=== PATIENT | female | born 1970 | race African-American/Black ===

== ENCOUNTER 2017-12-19 13:33 | Emergency (ER) | payer OTHER ==
[2017-12-19] MEDS ORDERED: SUCCINYLCHOLINE 20 MG/ML (10 ML) IV ONE (13:34)
[2017-12-19] MEDS ORDERED: ETOMIDATE 20 MG/10 ML VIAL IV ONE (13:34)
[2017-12-19] MEDS ORDERED: ALTEPLASE 100 ML IV ONE (13:56)
--- NOTE | 2017-12-19 13:59 | RAD REPORT ---
EXAM DESCRIPTION: CT - Ct Stroke Brain Wo Cont - 12/19/2017 1:48 pm CLINICAL HISTORY: Code stroke CLINICAL HISTORY: None. TECHNIQUE: Axial 5 millimeter thick images of the head were obtained without IV contrast. All CT scans are performed using dose optimization technique as appropriate and may include automated exposure control or mA/KV adjustment according to patient size. FINDINGS: No intracranial hemorrhage, mass, or cerebral edema. No acute cortical based infarction co nfirmed on this study. There are subtle areas of diminished attenuation in the left parietal lobe. No nhemorrhagic CVA would be possible. No other area identified as a possible source of nonhemorrhagic C VA. Ventricles are normal. No extra-axial fluid collections. Durán matter-white matter differentiatio n is preserved. Visualized portions of the mastoid air cells, paranasal sinuses, and orbits are unremarkable. IMPRESSION: No intracranial hemorrhage. No mass, edema or midline shift. Subtle diminished attenuation in the left parietal lobe could indicate nonhemorrhagic CVA. As clinical findings warrant, followup MR imaging could be performed for more sensitive stroke assess ment.
[2017-12-19 14:03] LABS: Absolute Lymphocytes (CBC) 4.1 K/uL (0.7-4.9); Absolute Monocytes 0.6 K/uL (0.1-1.3); Absolute Neutrophil 4.2 K/uL (1.8-8.0); Basophils % 2.7 % (0-1.3); Eosinophils % 2.2 % (0-4.4); Hematocrit 41.3 % (36.0-45.0); Lymphocytes % 43.6 % (15.3-44.8); MCH 28.1 pg (27.0-35.0); MCV 86.7 fL (80-100); MPV 8.5 fL (7.6-11.3); Monocytes % 6.5 % (3.3-12.3); RBC Red Blood Cell Count 4.76 M/uL (3.86-4.86)
--- NOTE | 2017-12-19 14:03 | RAD REPORT ---
EXAM DESCRIPTION: RAD - Chest Single View - 12/19/2017 1:56 pm CLINICAL HISTORY: Dizziness, headache, possible CVA, code stroke chest film COMPARISON: None. TECHNIQUE: AP portable chest image was obtained 1354 hours . FINDINGS: Lung volumes are low. Increased left base opacification is present. This could be early in filtrate or retrocardiac lung base atelectasis. No failure or volume overload. Trachea is midline. He art and vasculature are normal. No measurable pleural effusion and no pneumothorax. No gross bony abn ormality seen. No acute aortic findings suspected. IMPRESSION: Suspected left lung base infiltrate or atelectasis. This can be further evaluated with t wo view imaging when tolerable by the patient.
[2017-12-19 14:08] LABS: Protime INR 0.98
[2017-12-19] MEDS ORDERED: NA CHLORIDE 0.9% 500 ML ONE (14:13)
[2017-12-19] MEDS ORDERED: ONDANSETRON 4 MG/2 ML VIAL ONE ×2 (14:33→15:16)
[2017-12-19] MEDS ORDERED: METOPROLOL TARTRATE 5 MG/5 ML INJ IV ONE (14:50)
[2017-12-19] MEDS ORDERED: LORazepam 2 MG/ML VIAL ONE (14:51)
[2017-12-19 14:56] LABS: Bicarbonate 28 mEq/L (21-31); Glucose Level 84 mg/dL (65-120); Potassium 3.4 mEq/L (3.6-5.0); Sodium Level 135 mEq/L (135-145)
[2017-12-19 14:57] LABS: BUN Blood Urea Nitrogen 11 mg/dL (6-20)
[2017-12-19] MEDS ORDERED: FOSPHENYTOIN PE 500 MG/10 ML VIAL ONE (14:57)
[2017-12-19] MEDS ORDERED: NA CHLORIDE 0.9% 100 ML IV ONE (14:58)
[2017-12-19] MEDS ORDERED: RSI MEDICATION KIT IV ONE (15:12)
[2017-12-19] MEDS ORDERED: NA CHLORIDE 0.9% 1,000 ML ONE (15:16)
--- NOTE | 2017-12-19 15:19 | RAD REPORT ---
EXAM DESCRIPTION: CT - Head Brain Wo Cont - 12/19/2017 3:08 pm CLINICAL HISTORY: Declining state, altered mental status, seizure COMPARISON: CT study December 19 TECHNIQUE: Axial 5 mm thick images of the head were obtained without IV contrast. All CT scans are performed using dose optimization technique as appropriate and may include automated exposure control or mA/KV adjustment according to patient size. FINDINGS: Since the earlier examination there has been no development of hemorrhage. No new mass eff ect or edema. No cortical edema is seen. Patient continues to have a subtle patchy decrease in attenu ation in the left parietal lobe with questionable extension into the posterior left frontal lobe. Thi s remains a subtle finding but is concerning for nonhemorrhagic CVA in a patient with a right sided s ymptoms. Ventricles remain normal. No midline shift. Mastoid air cells and visualized portions of the paranasal sinuses are clear. No acute bony findings. Images were reviewed and findings discussed with referring clinician approximately 1510 hours. IMPRESSION: No hemorrhage has developed since earlier study. No new mass or mass effect. Patient continues to show a subtle patchy decrease in attenuation in the left cerebral hemisphere. Th is is concerning for nonhemorrhagic CVA in a patient with right-sided stroke symptoms. When the patient is stable enough, MR imaging could be used for more sensitive brain parenchymal asse ssment.
[2017-12-19] MEDS ORDERED: MIDAZOLAM HCL 2 MG/2 ML INJ ONE (15:21)
[2017-12-19] MEDS ORDERED: FENTANYL CITR 100 MCG/2 ML ONE (15:22)
--- NOTE | 2017-12-19 15:42 | ER ---
Nurse's Notes [facility] Name: Stella Vargas Age: 47 yrs Sex: Female : 1970 Arrival Date: 12/19/2017 Time: 13:37 Bed 3 Private MD: Diagnosis: Ischemic Stroke, Seizure Presentation: 12/19 13:37 Presenting complaint: Co worker reports that pt began c/o dizziness, headache, numbness ss on R side of face, and confusion that began 30 min TOW BOAT [employer]TAIN. Transition of care: patient was not received from another setting of care. Onset of symptoms was December 19, 2017. Risk Assessment: Do you want to hurt yourself or someone else? Patient reports no desire to harm self or others. Initial Sepsis Screen: Does the patient meet any 2 criteria? No. Patient's initial sepsis screen is negative. Does the patient have a suspected source of infection? No. Patient's initial sepsis screen is negative. Care prior to arrival: None. 13:37 Method Of Arrival: Wheelchair ss 13:37 Acuity: CAROLEE 2 ss 13:38 An acute neurological deficit is present. The charge nurse has been notified. iw Pre-hospital glucose is not applicable to this patient. Triage Assessment: 13:38 General: Appears in no apparent distress. Behavior is calm, cooperative. iw 13:38 The onset of the patients symptoms was December 19, 2017 at 13:00. iw 13:40 Neuro: Reports headache in right parietal area, numbness in right arm and right jaw and iw right taoism and right cheek and right leg. 13:41 Pain: Complains of pain in right taoism. iw MANAGER VOICE: 13:41 LMP 0 iw Stroke Activation: Physician: Stroke Attending; Name: Dr. Schaffer; Notified At: 13:38; Arrived At: 13:38 Physician: Chief Stroke Resident; Name: ; Notified At: 13:38; Arrived At: Physician: Stroke Resident; Name: ; Notified At: 13:38; Arrived At: Physician: ED Attending; Name: Dr. Schaffer; Notified At: 13:38; Arrived At: 13:38 Physician: ED Resident; Name: ; Notified At: 13:38; Arrived At: Historical: - Allergies: 13:39 Oxycodone; ss - Home Meds: 14:14 Lisinopril Oral [Active]; amlodipine oral [Active]; iw - PMHx: 13:39 Hypertension; ss - PSHx: 14:14 Hysterectomy; ; iw - Immunization history:: Adult Immunizations unknown. - Ebola Screening: : No symptoms or risks identified at this time. - Social history:: Smoking status: Patient/guardian denies using tobacco. Screenin:08 Abuse screen: Denies threats or abuse. Denies injuries from another. Nutritional iw screening: No deficits noted. Tuberculosis screening: No symptoms or risk factors identified. 14:12 Fall Risk IV access (20 points). iw Assessment: 13:38 Reassessment: Code Stroke called, Dr. Schaffer at bedside to assess patient, FS=78, pt iw to CT at 1339, with RN, back to ER bed 5 at 1347, placed on monitor, Xiomara Rn at bedside for IV insertion. 13:38 Patient has been NPO before screening. The patient is alert, and able to follow iw commands. The patient exhibits slurred or garbled speech. The patient is exhibiting difficulty speaking. The patient is exhibiting difficulty understanding words. The patient is able to swallow own secretions with no drooling or need for suction. 13:39 General: Appears in no apparent distress. comfortable, Behavior is calm, cooperative. iw Pain: Complains of pain in right taoism Pain currently is 8 out of 10 on a pain scale. Neuro: Level of Consciousness is awake, alert, obeys commands, Oriented to person, place, time, Weakness in right arm(s) Facial droop on right, Numbness in right cheek, mouth and right jaw. Cardiovascular: Patient's skin is warm and dry. Respiratory: Airway is patent Respiratory effort is even, unlabored. GI: Abdomen is flat, non-distended. Derm: Skin is pink, warm \T\ dry. normal. Musculoskeletal: Range of motion: intact in all extremities. 13:40 Neuro: Reports dizziness, headache numbness in right leg and right arm and right jaw iw and right taoism and right cheek. 14:05 T-PA (Activase) Screening: Indications: Definite evidence of stroke, ischemic, embolic, iw or hypertensive: Yes. Treatment will start within 4.5 hours onset of symptoms: Yes. No evidence of intracranial hemorrhage or CT of head and no evidence of peripheral hemorrhage or recent CVA: Yes. 14:05 Patient tolerated one teaspoon of water. No drooling, immediate coughing, gurgling, or iw clearing of the throat was noted. The patient tolerated 90mL of water. No drooling, immediate coughing, gurgling, or clearing of the throat was noted. The patient passed the bedside swallow screening. Oral medications may be given as ordered. Contact Physician for further diet orders. Provider notified of bedside swallow screening results: Seng Schaffer MD. 14:07 Reassessment: Bolus of 7.4 mg TPA given to LAC, over one minute, infusion started at iw 1400 to LAC, friend remains at bedside, VSS. 14:45 Reassessment: Patient c/o difficulty breathing, chest pressure, burning to back of ss throat that began suddenly. Dr. Schaffer notified and at bedside. Lungs are clear bilaterally. patient is awake, alert, following commands and is anxious. Family and friend at bedside. HR 130. 14:50 Reassessment: patient had absent seizure lasting approx [address] Schaffer at bedside as well as additional other ED staff. TPA almost complete, but verbal order to stop now by Dr. Schaffer. 49 mg total of TPA administered. 14:53 Reassessment: Patient to CT VIA stretcher and monitoring in place with ED nurses and ss Dr. Schaffer. 15:00 Reassessment: [facility] at bedside. decision to intubate patient now, Dr. cShaffer at bedside. [facility] and notified of new interventions in order to protect and maintain airway. 15:29 Reassessment: [facility] exiting ER and loading patient onto helicopter now. Vital Signs: 13:51 Weight 88.45 kg (R); iw 13:54 BP 147 / 123; Pulse 92; Resp 20; Pulse Ox 100% on R/A; Weight 82.55 kg (M); ss 14:05 BP 143 / 102; Pulse 88; Resp 20; Temp 98.9(TE); Pulse Ox 100% ; ss 14:09 BP 143 / 103; Pulse 92; Resp 18 S; Pulse Ox 100% on R/A; iw 14:17 BP 146 / 93; Pulse 85; Pulse Ox 100% on R/A; ss 14:32 BP 130 / 97; Pulse 87; Resp 19; Pulse Ox 100% ; ss 14:45 Pulse 130; Resp 32; Pulse Ox 100% on R/A; ss 14:50 BP 149 / 107; Pulse 66; Resp 19; Pulse Ox 100% on R/A; ss 15:00 BP 89 / 54; Pulse 70; Resp 16; Pulse Ox 100% on R/A; ss 15:02 BP 78 / 55; ss 14:45 Dr. Schaffer at bedside, non rebreather placed on patient ss [place] Coma Score: 13:54 Eye Response: spontaneous(4). Verbal Response: oriented(5). Motor Response: obeys ss commands(6). Total: 15. NIH Stroke Scale Scores: 13:38 NIHSS Score: 6 iw 14:04 NIHSS Score: 9 kdr ED Course: 13:37 Patient arrived in ED. ss 13:39 Triage completed. ss 13:39 Seng Schaffer MD is Attending Physician. kdr 13:39 Arm band placed on Patient placed in an exam room, on a stretcher, in view of staff ss members. 13:41 Patient has correct armband on for positive identification. iw 13:48 CT Stroke Brain w/o Contrast In Process Unspecified. EDMS 13:50 Inserted saline lock: 22 gauge in left antecubital area, using aseptic technique. Blood ss collected. 13:51 Georgia Tam, RN is Primary Nurse. iw 13:54 X-ray completed. Portable x-ray completed in exam room. Patient tolerated procedure jb2 well. 13:56 Stroke CXR 1 View In Process Unspecified. EDMS 14:07 EKG done, by residential gas heat technician. reviewed by Seng Schaffer MD. sm3 14:55 Inserted saline lock: 20 gauge in right antecubital area, using aseptic technique. ss Blood collected. 15:08 Head Brain Wo Cont CT In Process Unspecified. EDMS 15:23 Assisted provider with intubation using 7.5 mm ETT via oral route. ET tube secured at ss 22cm at the teeth. Intubated by Seng Schaffer MD Placement verified by CO2 detector w/ + color change, auscultating bilateral breath sounds, Patient tolerated well. 15:32 Patient transferred, IV remains in place. ss Administered Medications: 13:59 Drug: Alteplase (Bolus for Stroke) - Alteplase 0.09 mg/kg {Co-Signature: ok (Bella Fuentes RN).} Route: IVP; Infused Over: 1 mins; Site: left antecubital; 14:15 Follow up: Response: No adverse reaction; No change in condition ss 14:00 Drug: Alteplase 67 mg/hr {Co-Signature: ok (Bella Fuentes RN).} Route: IV; Rate: iw calculated rate; Site: left antecubital; 14:50 Follow up: IV Status: ordered to dc infusion at [address] Schaffer ss 14:32 Drug: Zofran 4 mg Route: IVP; Site: left antecubital; iw 14:45 Follow up: Response: No adverse reaction ss 14:59 Drug: CEREbyx 1 grams Route: IVPB; Site: right antecubital; ss 15:15 Follow up: IV Status: Completed infusion ss 15:16 Drug: Zofran 4 mg Route: IVP; Site: right antecubital; ss 15:20 Follow up: Response: No adverse reaction; No change in condition ss 15:16 Drug: NS 0.9% 500 ml Route: IV; Rate: bolus; Site: right antecubital; ss 15:34 Follow up: IV Status: Infusion continued upon transfer ss 15:21 Drug: fentaNYL (PF) 50 mcg Route: IVP; Site: left antecubital; ss 15:33 Follow up: Response: No adverse reaction ss 15:21 Drug: Versed 2 mg Route: IVP; Site: left antecubital; ss 15:33 Follow up: Response: No adverse reaction; Patient is sedated ss 15:22 Drug: Succinylcholine 100 mg Route: IVP; Site: left antecubital; ss 15:34 Follow up: Response: No adverse reaction; Patient is sedated Point of Care Testing: Blood Glucose: 13:41 Blood Glucose: 78 mg/dL; iw Ranges: Outcome: 15:32 Transferred by helicopter to [facility]. ss 15:32 critical 15:32 Instructed on the need for transfer. 15:41 ER care complete, transfer ordered by . kdr 15:49 Patient left the ED. NIH Stroke Scale - NIH Stroke Score Date: 12/19/2017 Time: 13:38 Total Score = 6 1a. Level of Consciousness (LOC) - 0(Alert) 1b. Level of Consciousness (LOC) (Year \T\ Age) - 0(Both) 1c. LOC Commands (Open \T\ Closes Eyes/Teacher Of The Deaf/Hard Of Hearing) - 0(Both) 2. Best Gaze (Lateral Gaze Paresis) - 0(Normal) 3. Visual Field Loss - 0(No visual loss) 4. Facial Palsy - 1(Minor Paralysis) 5a. Left Arm: Motor (10-second hold) - 0(No drift) 5b. Right Arm: Motor (10-second hold) - 1(Drift) 6a. Left Leg: Motor (5-second hold - always test supine) - 0(No drift) 6b. Right Leg: Motor (5-second hold - always test supine) - 1(Drift) 7. Limb Ataxia (finger/nose \T\ heel/devries - test with eyes open) - 0(Absent) 8. Sensory Loss (pinprick arms/legs/face) - 1(Mild to moderate loss) 9. Best Language: Aphasia (description/naming/reading) - 1(Mild to moderate aphasia) 10. Dysarthria (speech clarity - read or repeat words) - 1(Mild to Moderate) 11. Extinction and Inattention (visual/tactile/auditory/spatial/personal) - 0(No abnormality) Initials: NIH Stroke Scale - NIH Stroke Score Date: 12/19/2017 Time: 14:04 Total Score = 9 1a. Level of Consciousness (LOC) - 0(Alert) 1b. Level of Consciousness (LOC) (Year \T\ Age) - 0(Both) 1c. LOC Commands (Open \T\ Closes Eyes/Teacher Of The Deaf/Hard Of Hearing) - 0(Both) 2. Best Gaze (Lateral Gaze Paresis) - 0(Normal) 3. Visual Field Loss - 0(No visual loss) 4. Facial Palsy - 1(Minor Paralysis) 5a. Left Arm: Motor (10-second hold) - 0(No drift) 5b. Right Arm: Motor (10-second hold) - 2(Drift, some effort against gravity) 6a. Left Leg: Motor (5-second hold - always test supine) - 0(No drift) 6b. Right Leg: Motor (5-second hold - always test supine) - 2(Drift, some effort against gravity) 7. Limb Ataxia (finger/nose \T\ heel/devries - test with eyes open) - 2(Present in two limbs) 8. Sensory Loss (pinprick arms/legs/face) - 1(Mild to moderate loss) 9. Best Language: Aphasia (description/naming/reading) - 0(No aphasia) 10. Dysarthria (speech clarity - read or repeat words) - 1(Mild to Moderate) 11. Extinction and Inattention (visual/tactile/auditory/spatial/personal) - 0(No abnormality) Initials: kdr Signatures: Dispatcher [employer] EDMS Seng Schaffer MD MD kdr Buechter, Jesse jb2 Georgia Tam RN RN iw Smirch, Shelby, RN RN ss Montes, Shakira 3 Bella Fuentes RN Corrections: (The following items were deleted from the chart) 14:07 13:54 BP 147 / 123; Pulse 92bpm; Resp 20bpm; Pulse Ox 100% RA; 83.01 kg; [facility] 15:26 14:50 Reassessment: patient had absent seizure lasting approx [address] ok Schaffer at bedside as well as additional other ED staff. TPA almost complete, but verbal order to stop now by Dr. Schaffer. 19:25 15:00 BP 59 / 54; Pulse 70bpm; Resp 16bpm; Pulse Ox 100% RA; [facility] 19:49 15:32 No provider procedures requiring assistance completed. [facility]
--- NOTE | 2017-12-19 15:43 | EDPHYS ---
Physician Documentation [facility] Name: Stella Vargas Age: 47 yrs Sex: Female : 1970 Arrival Date: 12/19/2017 Time: 13:37 Bed 3 Private MD: ED Physician Seng Schaffer HPI: 12/19 14:07 This 47 yrs old Black Female presents to ER via Wheelchair with complaints of S/S of kdr Possible Stroke. 14:07 The patient's problem is reported as a facial droop, on right, weakness, in the right kdr upper extremity, in the right lower extremity, in the right side of face. 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 Duration: This was a single incident, The episode is continuous, the symptoms became persistent just prior to arrival. Context: the episode(s) was witnessed, by co-worker(s), symptoms became apparent. 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 - Ebola Screening: : No symptoms or risks identified at this time. - Social history:: Smoking status: Patient/guardian denies using tobacco. ROS: 14:22 Constitutional: Negative for fever, chills, and weight loss, Eyes: Negative for injury, kdr pain, redness, and discharge, ENT: Negative for injury, pain, and discharge, Neck: Negative for injury, pain, and swelling, Cardiovascular: Negative for chest pain, palpitations, and edema, Respiratory: Negative for shortness of breath, cough, wheezing, and pleuritic chest pain, Abdomen/GI: Negative for abdominal pain, nausea, vomiting, diarrhea, and constipation, Back: Negative for injury and pain, : Negative for injury, bleeding, discharge, and swelling, MS/Extremity: Negative for injury and deformity, Skin: Negative for injury, rash, and discoloration, Psych: Negative for depression, anxiety, suicide ideation, homicidal ideation, and hallucinations, Allergy/Immunology: Negative for hives, rash, and allergies, Endocrine: Negative for neck swelling, polydipsia, polyuria, polyphagia, and marked weight changes, Hematologic/Lymphatic: Negative for swollen nodes, abnormal bleeding, and unusual bruising. 14:22 Neuro: Positive for headache, speech changes, weakness, of the right cheek, right uatsdin, right jaw, right arm and right leg. Exam: 14:22 Radiologist reports: neg blood kdr 14:22 Constitutional: This is a well developed, well nourished patient who is awake, alert, and in no acute distress. Eyes: Pupils equal round and reactive to light, extra-ocular motions intact. Lids and lashes normal. Conjunctiva and sclera are non-icteric and not injected. Cornea within normal limits. Periorbital areas with no swelling, redness, or edema. Neck: Trachea midline, no thyromegaly or masses palpated, and no cervical lymphadenopathy. Supple, full range of motion without nuchal rigidity, or vertebral point tenderness. No Meningismus. Chest/axilla: Normal chest wall appearance and motion. Nontender with no deformity. No lesions are appreciated. Cardiovascular: Regular rate and rhythm with a normal S1 and S2. No gallops, murmurs, or rubs. Normal PMI, no JVD. No pulse deficits. Respiratory: Lungs have equal breath sounds bilaterally, clear to auscultation and percussion. No rales, rhonchi or wheezes noted. No increased work of breathing, no retractions or nasal flaring. Abdomen/GI: Soft, non-tender, with normal bowel sounds. No distension or tympany. No guarding or rebound. No evidence of tenderness throughout. Back: No spinal tenderness. No costovertebral tenderness. Full range of motion. Skin: Warm, dry with normal turgor. Normal color with no rashes, no lesions, and no evidence of cellulitis. MS/ Extremity: Pulses equal, no cyanosis. Neurovascular intact. Full, normal range of motion. Psych: Awake, alert, with orientation to person, place and time. Behavior, mood, and affect are within normal limits. 14:22 Neuro: Orientation: is normal, Mentation: is normal, Memory: is normal, Cranial nerves: no acute changes, May have slight right facial weakness - nasolabial fold present, Cerebellar function: dysmetria is noted on the right, the patient is unable to track right heel to left devries, mild deficit, Motor: Vital Signs: 13:51 Weight 88.45 kg (R); iw 13:54 BP 147 / 123; Pulse 92; Resp 20; Pulse Ox 100% on R/A; Weight 82.55 kg (M); ss 14:05 BP 143 / 102; Pulse 88; Resp 20; Temp 98.9(TE); Pulse Ox 100% ; ss 14:09 BP 143 / 103; Pulse 92; Resp 18 S; Pulse Ox 100% on R/A; iw 14:17 BP 146 / 93; Pulse 85; Pulse Ox 100% on R/A; ss 14:32 BP 130 / 97; Pulse 87; Resp 19; Pulse Ox 100% ; ss 14:45 Pulse 130; Resp 32; Pulse Ox 100% on R/A; ss 14:50 BP 149 / 107; Pulse 66; Resp 19; Pulse Ox 100% on R/A; ss 15:00 BP 89 / 54; Pulse 70; Resp 16; Pulse Ox 100% on R/A; ss 15:02 BP 78 / 55; ss 14:45 Dr. Schaffer at bedside, non rebreather placed on patient ss NIH Stroke Scale Scores: 13:38 NIHSS Score: 6 iw 14:04 NIHSS Score: 9 kdr [place] Coma Score: 13:54 Eye Response: spontaneous(4). Verbal Response: oriented(5). Motor Response: obeys ss commands(6). Total: 15. Procedures: 15:32 Intubation: Ventilated with 100% NRB prior to procedure. O2 saturation prior to kdr procedure was 100 %. Intubated orally using # 3 Francisco blade with 7.5 mm ETT. was successful on first attempt. Ventilated with Ambu bag. Cricoid pressure applied during procedure. Tube secured with ETT luz Placement verified by CO2 detector with (+) color change, auscultating bilateral breath sounds, O2 saturation after procedure was 100 %. Patient tolerated well. MDM: 15:32 Data reviewed: vital signs, nurses notes, lab test result(s), radiologic studies. kdr Counseling: I had a detailed discussion with the patient and/or guardian regarding: the historical points, exam findings, and any diagnostic results supporting the discharge/admit diagnosis, lab results, radiology results, the need to transfer to another facility. ED course: The patient was stable until she had an apparent generalized seizure - contracted, . 15:41 Patient medically screened. kdr 12/19 13:43 Order name: Basic Metabolic Panel kdr 12/19 13:43 Order name: CBC with Diff kdr 12/19 13:42 Order name: CT Stroke Brain w/o Contrast iw 12/19 13:43 Order name: Protime (+inr) kdr 12/19 13:43 Order name: Ptt, Activated kdr 12/19 13:43 Order name: Stroke CXR 1 View kdr 12/19 15:04 Order name: Head Brain Wo Cont CT dm5 12/19 13:43 Order name: EKG; Complete Time: 13:43 kdr 12/19 13:43 Order name: Accucheck; Complete Time: 15:49 kdr 12/19 13:43 Order name: Cardiac monitoring; Complete Time: 14:12 kdr 12/19 13:43 Order name: EKG - Nurse/Tech; Complete Time: 14:12 kdr 12/19 13:43 Order name: IV Saline Lock; Complete Time: 14:09 kdr 12/19 13:43 Order name: Labs collected and sent; Complete Time: 14:09 kdr 12/19 13:43 Order name: NPO; Complete Time: 14:09 kdr 12/19 13:43 Order name: O2 Per Protocol; Complete Time: 14:09 kdr 12/19 13:43 Order name: O2 Sat Monitoring; Complete Time: 14:11 kdr 12/19 13:43 Order name: Stroke Swallow Screen; Complete Time: 15:49 kdr Administered Medications: 13:59 Drug: Alteplase (Bolus for Stroke) - Alteplase 0.09 mg/kg {Co-Signature: ok Fuentes RN).} Route: IVP; Infused Over: 1 mins; Site: left antecubital; 14:15 Follow up: Response: No adverse reaction; No change in condition 14:00 Drug: Alteplase 67 mg/hr {Co-Signature: ok (Bella Fuentes RN).} Route: IV; Rate: iw calculated rate; Site: left antecubital; 14:50 Follow up: IV Status: ordered to dc infusion at [address] Schaffer 14:32 Drug: Zofran 4 mg Route: IVP; Site: left antecubital; iw 14:45 Follow up: Response: No adverse reaction ss 14:59 Drug: CEREbyx 1 grams Route: IVPB; Site: right antecubital; ss 15:15 Follow up: IV Status: Completed infusion ss 15:16 Drug: Zofran 4 mg Route: IVP; Site: right antecubital; ss 15:20 Follow up: Response: No adverse reaction; No change in condition ss 15:16 Drug: NS 0.9% 500 ml Route: IV; Rate: bolus; Site: right antecubital; ss 15:34 Follow up: IV Status: Infusion continued upon transfer ss 15:21 Drug: fentaNYL (PF) 50 mcg Route: IVP; Site: left antecubital; ss 15:33 Follow up: Response: No adverse reaction ss 15:21 Drug: Versed 2 mg Route: IVP; Site: left antecubital; ss 15:33 Follow up: Response: No adverse reaction; Patient is sedated ss 15:22 Drug: Succinylcholine 100 mg Route: IVP; Site: left antecubital; ss 15:34 Follow up: Response: No adverse reaction; Patient is sedated Point of Care Testing: Blood Glucose: 13:41 Blood Glucose: 78 mg/dL; iw Ranges: Critical Glucose Levels:Adult <50 mg/dl or >400 mg/dl <40 mg/dl or >180 mg/dl Disposition: 12/19/17 15:41 Transfer ordered to [facility]. Diagnosis is Ischemic Stroke, Seizure. - Reason for transfer: Higher level of care. - Accepting physician is Dr. Menard, Neurology. - Condition is Serious. - Problem is new. - Symptoms have improved. Critical care time excluding procedures: 15:42 Critical care time: Bedside Care: 45 minutes, Consultation: 10 minutes, Family kdr Intervention: 10 minutes. Total time: 65 minutes NIH Stroke Scale - NIH Stroke Score Date: 12/19/2017 Time: 13:38 Total Score = 6 1a. Level of Consciousness (LOC) - 0(Alert) 1b. Level of Consciousness (LOC) (Year \T\ Age) - 0(Both) 1c. LOC Commands (Open \T\ Closes Eyes/Second Ride Fare Collector) - 0(Both) 2. Best Gaze (Lateral Gaze Paresis) - 0(Normal) 3. Visual Field Loss - 0(No visual loss) 4. Facial Palsy - 1(Minor Paralysis) 5a. Left Arm: Motor (10-second hold) - 0(No drift) 5b. Right Arm: Motor (10-second hold) - 1(Drift) 6a. Left Leg: Motor (5-second hold - always test supine) - 0(No drift) 6b. Right Leg: Motor (5-second hold - always test supine) - 1(Drift) 7. Limb Ataxia (finger/nose \T\ heel/devries - test with eyes open) - 0(Absent) 8. Sensory Loss (pinprick arms/legs/face) - 1(Mild to moderate loss) 9. Best Language: Aphasia (description/naming/reading) - 1(Mild to moderate aphasia) 10. Dysarthria (speech clarity - read or repeat words) - 1(Mild to Moderate) 11. Extinction and Inattention (visual/tactile/auditory/spatial/personal) - 0(No abnormality) Initials: iw NIH Stroke Scale - NIH Stroke Score Date: 12/19/2017 Time: 14:04 Total Score = 9 1a. Level of Consciousness (LOC) - 0(Alert) 1b. Level of Consciousness (LOC) (Year \T\ Age) - 0(Both) 1c. LOC Commands (Open \T\ Closes Eyes/Second Ride Fare Collector) - 0(Both) 2. Best Gaze (Lateral Gaze Paresis) - 0(Normal) 3. Visual Field Loss - 0(No visual loss) 4. Facial Palsy - 1(Minor Paralysis) 5a. Left Arm: Motor (10-second hold) - 0(No drift) 5b. Right Arm: Motor (10-second hold) - 2(Drift, some effort against gravity) 6a. Left Leg: Motor (5-second hold - always test supine) - 0(No drift) 6b. Right Leg: Motor (5-second hold - always test supine) - 2(Drift, some effort against gravity) 7. Limb Ataxia (finger/nose \T\ heel/devries - test with eyes open) - 2(Present in two limbs) 8. Sensory Loss (pinprick arms/legs/face) - 1(Mild to moderate loss) 9. Best Language: Aphasia (description/naming/reading) - 0(No aphasia) 10. Dysarthria (speech clarity - read or repeat words) - 1(Mild to Moderate) 11. Extinction and Inattention (visual/tactile/auditory/spatial/personal) - 0(No abnormality) Initials: kdr Signatures: Dispatcher [employer] EDTN Seng Schaffer MD MD kdr Georgia Tam RN RN iw Smirch, Shelby, RN RN ss Bella Fuentes RN ss Corrections: (The following items were deleted from the chart) 13:50 13:43 CT-STROKE BRAIN W/O CONTRAST+CT.RAD.BRZ ordered. [facility] EDTN 15:49 15:41 12/19/2017 15:41 Transfer ordered to [facility]. ss Diagnosis is Ischemic Stroke, Seizure. Reason for transfer: Higher level of care. Accepting physician is Dr. Menard, Neurology. Condition is Serious. Problem is new. Symptoms have improved. kdr
--- NOTE | 2017-12-20 07:57 | EKG ---
Test Date: 2017-12-19 Test Time: 13:55:25 Refrigerating Technician: JANUSZ MEASUREMENT RESULTS: Intervals: Rate: 80 LA: 158 QRSD: 80 QT: 372 QTc: 429 Lavinia: P: 64 LA: 158 QRS: 17 T: 45 INTERPRETIVE STATEMENTS: Normal sinus rhythm Normal ECG No previous ECG available for comparison Electronically Signed On 12-20-17 07:55:03 CDT by Lonny Bettencourt
== END 2017-12-19 15:49 | disposition short-term general hospital (02) ==
LOC: ER 13:33
PROC: 0BH17EZ Insertion of Endotracheal Airway into Trachea, Via Natural or Artificial Opening (ICD-10-PCS; principal; 2017-12-19)
PROC: 5A1935Z Respiratory Ventilation, Less than 24 Consecutive Hours (ICD-10-PCS; 2017-12-19)
PROC: 3E03317 Introduction of Other Thrombolytic into Peripheral Vein, Percutaneous Approach (ICD-10-PCS; 2017-12-19)
DX: I63.8 Other cerebral infarction (principal); R56.9 Unspecified convulsions; R29.709 NIHSS score 9; I10 Essential (primary) hypertension; Z88.5 Allergy status to narcotic agent
CPT/HCPCS: 31500; 36415; 70450; 71045; 80048; 82962; 85025; 85610; 85730; 92977; 93005; 99291; 99292; J0330; J2250; J2405; J2997; J3010; J7030; Q2009

== ENCOUNTER 2019-03-30 14:19 | Emergency (ER) | payer OTHER ==
--- OUTSIDE RECORDS SUMMARY | 2019-03-30 14:21 | XMS REPORT | Clinical Summary ---
:[address] [facility] Address [address] [place] [address] Care Team Providers Name Role Phone Violeta Harrison MD Unavailable Violeta Harrison MD Primary Care Provider Allergies Active Allergy Reactions Severity Noted Date Comments Oxycodone Swelling High 04/30/2017 Angioedema Medications Medication Sig Dispensed Refills Start End Date Status Date montelukast Take 1 tablet 30 tablet 2 04/06/20 Active (SINGULAIR) 10 mg (10 mg total) 8 19 tabletIndications: by mouth Allergic rhinitis, nightly. unspecified seasonality, unspecified trigger azelastine-fluticasone 1 spray by 23 g 2 Active (DYMISTA) 137-50 Nasal route 2 8 mcg/spray (two) times SpryIndications: daily. Allergic rhinitis, unspecified seasonality, unspecified trigger albuterol HFA Inhale 1 puff 1 Inhaler 2 07/22/19 Active (VENTOLIN HFA) 90 by mouth via 9 20 mcg/actuation inhaler every inhalerIndications: 6 (six) hours Sore throat, Allergic as needed for rhinitis, unspecified Wheezing. seasonality, unspecified trigger, Mild intermittent extrinsic asthma without complication lisinopril Take 1 tablet 30 tablet 11 09/10/19 Active (PRINIVIL,ZESTRIL) 20 (20 mg total) 9 20 MG tablet by mouth daily. chlorthalidone Take 1 tablet 30 tablet 3 09/10/19 Active (HYGROTON) 25 MG (25 mg total) 9 20 tablet by mouth daily. gabapentin (NEURONTIN) Take 1 capsule 90 capsule 2 09/16/19 Active 300 MG capsule (300 mg total) 9 20 by mouth 3 (three) times daily. diclofenac (VOLTAREN) Apply 2 g 100 g 2 Active 1 % Gel topically 4 9 (four) times daily. aspirin 81 MG EC Take 1 tablet 30 tablet 11 02/03/20 Active tabletIndications: (81 mg total) 9 20 History of stroke by mouth daily. albuterol HFA (PROAIR Inhale 1 puff 1 Inhaler 0 03/03/20 Active HFA) 90 mcg/actuation by mouth via 9 20 inhaler inhaler every 6 (six) hours as needed for Wheezing. amLODIPine (NORVASC) Take 1 tablet 90 tablet 0 Active 10 MG (10 mg total) 9 tabletIndications: by mouth Benign essential HTN daily. albuterol HFA Inhale 1 puff 1 Inhaler 0 04/06/20 Discontinued (VENTOLIN HFA) 90 by mouth via 7 18 mcg/actuation inhaler every inhalerIndications: 6 (six) hours Sore throat as needed for Wheezing. aspirin 81 MG EC Take 1 tablet 30 tablet 11 02/04/20 Discontinued tabletIndications: (81 mg total) 7 19 Hyperlipidemia, by mouth unspecified daily. hyperlipidemia type amLODIPine (NORVASC) Take 1 tablet 30 tablet 11 07/15/19 Discontinued 10 MG (10 mg total) 7 19 tabletIndications: by mouth Benign essential HTN daily. lisinopril-hydroCHLORO Take 2 tablets 60 tablet 11 07/15/19 Discontinued thiazide by mouth 8 19 (PRINZIDE,ZESTORETIC) daily. 20-12.5 mg per tabletIndications: Essential hypertension atorvastatin (LIPITOR) Take 1 tablet 30 tablet 5 12/24/19 40 MG (40 mg total) 8 19 tabletIndications: by mouth Transient cerebral daily. ischemia, unspecified type, Seizure-like activity (HCC), Transient loss of consciousness, Right arm weakness albuterol HFA Inhale 1 puff 1 Inhaler 0 07/15/19 Discontinued (VENTOLIN HFA) 90 by mouth via 8 19 mcg/actuation inhaler every inhalerIndications: 6 (six) hours Sore throat, Allergic as needed for rhinitis, unspecified Wheezing. seasonality, unspecified trigger, Mild intermittent extrinsic asthma without complication amLODIPine (NORVASC) Take 1 tablet 90 tablet 0 03/04/20 Discontinued 10 MG (10 mg total) 9 19 tabletIndications: by mouth Benign essential HTN daily. lisinopril-hydroCHLORO Take 2 tablets 180 tablet 0 09/10/19 Discontinued thiazide by mouth 9 19 (PRINZIDE,ZESTORETIC) daily. 20-12.5 mg per tabletIndications: Essential hypertension methylPREDNISolone Take 1 tablet 21 tablet 0 09/12/19 Discontinued (MEDROL DOSEPACK) 4 mg (4 mg total) 9 19 tablet by mouth daily follow package directions. tiZANidine (ZANAFLEX) Take 1 tablet 30 tablet 1 02/04/20 Discontinued 4 MG tablet (4 mg total) 9 19 by mouth daily. methylPREDNISolone FOLLOW 21 tablet 0 10/09/19 Discontinued (MEDROL DOSEPACK) 4 mg PACKAGE 9 19 tablet DIRECTIONS nitrofurantoin, Take 1 capsule 14 capsule 0 09/28/19 macrocrystal-monohydra (100 mg total) 9 19 te, (MACROBID) 100 MG by mouth 2 capsule (two) times daily for 7 days. cefUROXime (CEFTIN) Take 1 tablet 20 tablet 0 10/19/19 500 MG tablet (500 mg total) 9 19 by mouth 2 (two) times daily for 10 days. albuterol HFA (PROAIR Inhale 1 puff 1 Inhaler 0 03/04/20 Discontinued HFA) 90 mcg/actuation by mouth via 9 19 inhaler inhaler every 6 (six) hours as needed for Wheezing. traMADol (ULTRAM) 50 Take 1 tablet 30 tablet 0 02/14/20 mg tablet (50 mg total) 9 19 by mouth every 6 (six) hours as needed for Pain for up to 10 days. Max Daily Amount: 200 mg predniSONE (DELTASONE) Take 2 tablets 10 tablet 0 02/09/20 20 MG tablet (40 mg total) 9 19 by mouth daily for 5 days. Active Problems Problem Noted Date Headache 02/03/2019 Overview: Headaches 4 days ago onset .Similar headaches 6 yrs ago Trochanteric bursitis 09/11/2018 Vitamin D deficiency 04/13/2018 HLD (hyperlipidemia) 04/12/2018 Mild intermittent extrinsic asthma without complication 04/12/2018 Prediabetes 04/12/2018 History of stroke 12/28/2017 Overview: 02/03/19 H/O TIA last year Dr Weiss ?thrombotic Carotid scan-No stenosis , mri negative but pt had right sided weakness, given tpa -12/2017 Sleep apnea 05/07/2017 Essential hypertension 04/30/2017 Overview: Last Assessment & Plan: Discussed blood pressure goals, diet, exercise, regular blood pressure checks with a biceps cuff. Call if frequently above 130 Sciatica of right side 04/30/2017 History of tobacco abuse 04/30/2017 Overview: Quit Smoking currently Allergic rhinitis, unspecified chronicity, unspecified seasonality, 04/30/2017 unspecified trigger Resolved Problems Problem Noted Date Resolved Date Seizure-like activity 12/28/2017 04/12/2018 Right arm weakness 12/28/2017 04/12/2018 Transient loss of consciousness 12/28/2017 04/12/2018 Encounters Date Type Specialty Care Team Description 03/04/2019 Refill Internal Medicine Silvestre Bowman Benign essential HTN MD [place] 03/04/2019 Refill Internal Medicine Violeta Harrison MD 02/24/2019 Telephone Internal Medicine Violeta Harrison Health Update MD [place] 02/03/2019 Office Visit Internal Medicine Silvestre Bowman Essential hypertension (Primary Dx); MD [place] Episodic cluster headache, not intractable; History of stroke; Hyperlipidemia, unspecified hyperlipidemia type; History of tobacco abuse 10/26/2018 Orders Only Internal Medicine Violeta Harrison MD 10/26/2018 Telephone Internal Medicine Violeta Harrison Advice Only MD [place] 10/08/2018 Office Visit Internal Medicine Violeta Harrison Essential hypertension (Primary Dx); MD [place] Sleep apnea, unspecified type; Trochanteric bursitis of left hip; Prediabetes; Acute cystitis with hematuria; Mixed hyperlipidemia 09/20/2018 Orders Only Internal Medicine Violeta Harrison MD 09/16/2018 Hospital Encounter Violeta Harrison Sciatica of right side MD [place] 09/16/2018 Office Visit Internal Medicine Violeta Harrison Essential hypertension (Primary Dx); MD [place] Sciatica of right side; Prediabetes; Vitamin D deficiency; Mild intermittent extrinsic asthma without complication; Mixed hyperlipidemia 09/16/2018 Outside Orders Violeta Harrison MD 09/11/2018 Refill Internal Medicine Violeta Harrison MD 09/10/2018 Office Visit Internal Medicine Violeta Harrison Essential hypertension (Primary Dx); MD [place] Mild intermittent extrinsic asthma without complication; Prediabetes; Vitamin D deficiency; Sciatica of right side; Trochanteric bursitis of left hip 07/15/2018 Refill Internal Medicine Guerita Stewart Benign essential HTN; MD Jeet Essential hypertension; Sore throat; Allergic rhinitis, unspecified seasonality, unspecified trigger; Mild intermittent extrinsic asthma without complication 04/13/2018 Telephone Internal Medicine Guerita Stewart Advice Only MD [place] 04/06/2018 Office Visit Internal Medicine Guerita Stewart Mixed hyperlipidemia (Primary Dx); MD Jeet Sore throat; Vitamin D deficiency; Allergic rhinitis, unspecified seasonality, unspecified trigger; Prediabetes; Mild intermittent extrinsic asthma without complication; Essential hypertension; History of stroke 04/06/2018 Hospital Encounter Daniella Woodward MD Breast mass 04/03/2018 Outside Orders Central Scheduling Daniella Woodward MD Breast mass ( Primary Dx) after 03/29/2018 Family History Medical History Relation Name Comments Cancer Father colon cancer Heart attack Father at 30 and 45 Cancer Maternal Grandmother breast cancer, 73 Lung cancer Mother Heart attack Paternal Grandfather Cancer Paternal Grandmother Relation Name Status Comments Father Maternal Grandmother Mother Paternal Grandfather Paternal Grandmother Social History Tobacco Use Types Packs/Day Years Used Date Former Smoker Cigarettes 0.5 30 Started: 2018 Smokeless Tobacco: Never Used Quit: 12/10/2017 Tobacco Cessation: Counseling Given: No Comments: quit w stroke- 12/2017 Alcohol Use Drinks/Week oz/Week Comments Yes 1 Glasses of wine 0.6 ocassionally , once a week Sex Assigned at Date Recorded Not on file Job Start Date Occupation Industry Not on file Not on file Not on file Travel History Travel Start Travel End No recent travel history available. Last Filed Vital Signs Vital Sign Reading Time Taken Blood Pressure 126/79 02/03/2019 1:55 PM CDT Pulse 79 02/03/2019 1:55 PM CDT Temperature 36.6 C (97.8 F) 02/03/2019 1:55 PM CDT Respiratory Rate 16 02/03/2019 1:55 PM CDT Oxygen Saturation 100% 02/03/2019 1:55 PM CDT Inhaled Oxygen Concentration - - Weight 83.1 kg (183 lb 3.2 oz) 02/03/2019 1:55 PM CDT Height 165.1 cm (5' 5") 02/03/2019 1:55 PM CDT Body Mass Index 30.49 02/03/2019 1:55 PM CDT Plan of Treatment Not on file Procedures Procedure Name Priority Date/Time Associated Diagnosis Comments URINE CULTURE, Routine 10/08/2018 12:10 Results for this ROUTINE PM CDT procedure are in the results section. MICROSCOPIC Routine 10/08/2018 12:10 Results for this EXAMINATION PM CDT procedure are in the results section. UA/M W/RFLX CULTURE, AP Routine 10/08/2018 12:10 Acute cystitis with Results for this ROUT PM CDT hematuria procedure are in the results section. TSH+FREE T4 Routine 10/08/2018 12:10 Mixed hyperlipidemia Results for this PM CDT procedure are in the results section. HEMOGLOBIN A1C Routine 10/08/2018 12:10 Prediabetes Results for this PM CDT procedure are in the results section. LIPID PANEL Routine 10/08/2018 12:10 Mixed hyperlipidemia Results for this PM CDT procedure are in the results section. COMPREHENSIVE Routine 10/08/2018 12:10 Essential Results for this METABOLIC PANEL PM CDT hypertension procedure are in the results section. XR SPINE LUMBAR Routine 09/16/2018 9:51 Sciatica of right Results for this COMPLETE MIN 4 VIEWS AM [employer] side procedure are in the results section. URINE CULTURE, Routine 09/16/2018 9:24 Results for this ROUTINE AM [employer] procedure are in the results section. MICROSCOPIC Routine 09/16/2018 9:24 Results for this EXAMINATION AM [employer] procedure are in the results section. UA/M W/RFLX CULTURE, AP Routine 09/16/2018 9:24 Essential Results for this ROUT AM [employer] hypertension procedure are in Sciatica of right the results side section. VITAMIN D, 25-HYDROXY Routine 04/06/2018 2:21 Results for this PM CDT procedure are in the results section. BASIC METABOLIC PANEL Routine 04/06/2018 2:21 Essential Results for this (7) PM CDT hypertension procedure are in the results section. LIPID PANEL Routine 04/06/2018 2:21 Mixed hyperlipidemia Results for this PM CDT procedure are in the results section. HEMOGLOBIN A1C Routine 04/06/2018 2:21 Prediabetes Results for this PM CDT procedure are in the results section. US BREAST BILATERAL Routine 04/06/2018 9:20 Breast mass Results for this AM CDT procedure are in the results section. after 03/29/2018 Results MICROSCOPIC EXAMINATION (10/08/2018 12:10 PM CDT)Only the most recent of2 resultswithin the time period is included. WBC 0-5 0 - 5 /hpf [facility] 1 RBC 0-2 0 - 2 /hpf [facility] 1 Epithelial Cells (non renal) 0-10 0 - 10 /hpf [facility] 1 Bacteria None seen None seen/ [facility] 1 Specimen Narrative Performed At Performed at:01 - [facility] [employer] [place], [id number] [employer] Supervisor: Bruce Leonardo MD, Phone:[phone] Performing Organization Address [facility]/Zipcode Phone Number [facility] URINE CULTURE, ROUTINE (10/08/2018 12:10 PM CDT)Only the most recent of2 resultswithin the time period is included. Urine Culture, Routine Final report [facility] 1 Result 1 Comment [facility] 1 Comment: Mixed urogenital adele Less than 10,000 colonies/mL Specimen Narrative Performed At Performed at:01 [facility] [email or web address] [place], [id number] [employer] Supervisor: Bruce Leonardo MD, Phone:[phone] Performing Organization Address [facility]/Zipcode Phone Number [facility] UA/M W/RFLX CULTURE, ROUT (10/08/2018 12:10 PM CDT)Only the most recent of2 resultswithin the time period is included. Specific [place], UA 1.014 1.005 - 1.03 [facility] 1 pH, UA 6.5 5.0 - 7.5 [facility] 1 Color, UA Yellow Yellow [facility] 1 Appearance Cloudy (A) Clear [facility] 1 WBC Esterase 1+ (A) Negative [facility] 1 Protein, UA Negative Negative/T [facility] 1 Glucose, Urine Negative Negative [facility] 1 Ketones, UA Negative Negative [facility] 1 Blood, UA Negative Negative [facility] 1 Bilirubin, UA Negative Negative [facility] 1 Urobilinogen,Semi-Qn 0.2 0.2 - 1.0 mg/dL [facility] 1 Nitrite, UA Negative Negative [facility] 1 Microscopic Examination See below:Comment: Microscopic [facility] 1 was indicated and was performed. Urinalysis Reflex CommentComment: This specimen [facility] 1 has reflexed to a Urine Culture. Specimen Urine Narrative Performed At Performed at:[address] [place], [place] [id number] [employer] Supervisor: Bruce Leonardo MD, Phone:[phone] Performing Organization Address [facility] Phone Number [facility] TSH+FREE T4 (10/08/2018 12:10 PM CDT) TSH 0.485 0.450 - 4.50 uIU/mL [facility] 1 T4,Free(Direct) 1.17 0.82 - 1.77 ng/dL [facility] 1 Specimen Narrative Performed At Performed at:[address] [place], [place] [id number] [employer] Supervisor: Bruce Leonardo MD, Phone:[phone] Performing Organization Address [facility] Phone Number [facility] 1 Hemoglobin A1c (10/08/2018 12:10 PM CDT)Only the most recent of2 resultswithin the time period is included. Hemoglobin A1c 6.1 (H) 4.8 - 5.6 % [facility] 1 Comment: Prediabetes: 5.7 - 6.4 Diabetes: >6.4 Glycemic control for adults with diabetes: <7.0 Specimen Blood Narrative Performed At Performed at:[address] [place], [place] [address] [place], [id number] [employer] Supervisor: Bruce Leonardo MD, Phone:[phone] Performing Organization Address [facility] Phone Number [facility] 1 Lipid panel (10/08/2018 12:10 PM CDT)Only the most recent of2 resultswithin the time period is included. Cholesterol, Total 191 100 - 199 mg/dL [facility] 1 Triglycerides 64 0 - 149 mg/dL [facility] 1 HDL Cholesterol 52 >39 mg/dL [facility] 1 VLDL Cholesterol Thompson 13 5 - 40 mg/dL [facility] 1 LDL Cholesterol Calc 126 (H) 0 - 99 mg/dL [facility] 1 LDL/HDL Ratio 2.4 0.0 - 3.2 ratio [facility] 1 Comment: LDL/ HDL Ratio MenWomen 1/2 Avg.Risk 1.01.5 Avg.Risk 3.63.2 2X Avg.Risk 6.25.0 3X Avg.Risk 8.06.1 Specimen Blood Narrative Performed At Performed at: [facility] [address] [place], [id number] [employer] Supervisor: Bruce Leonardo MD, Phone:[phone] Performing Organization Address [facility] Phone Number [facility] 1 Comprehensive metabolic panel (10/08/2018 12:10 PM CDT) Glucose, Serum 77 65 - 99 mg/dL [facility] 1 BUN 14 6 - 24 mg/dL [facility] 1 Creatinine, Serum 0.63 0.57 - 1.00 mg/dL [facility] 1 eGFR If NonAfricn Am 106 >59 mL/min/1.73 [facility] 1 eGFR If Africn Am 123 >59 mL/min/1.73 [facility] 1 BUN/Creatinine Ratio 22 9 - 23 [facility] 1 Sodium, Serum 139 134 - 144 mmol/L [facility] 1 Potassium, Serum 4.1 3.5 - 5.2 mmol/L [facility] 1 Chloride, Serum 101 96 - 106 mmol/L [facility] 1 Carbon Dioxide, Total 23 20 - 29 mmol/L [facility] 1 Calcium, Serum 9.2 8.7 - 10.2 mg/dL [facility] 1 Protein, Total, Serum 7.0 6.0 - 8.5 g/dL [facility] 1 Albumin, Serum 4.3 3.5 - 5.5 g/dL [facility] 1 Globulin, Total 2.7 1.5 - 4.5 g/dL [facility] 1 A/G Ratio 1.6 1.2 - 2.2 [facility] 1 Bilirubin, Total 0.2 0.0 - 1.2 mg/dL [facility] 1 Alkaline Phosphatase, S 63 39 - 117 IU/L [facility] 1 AST (SGOT) 15 0 - 40 IU/L [facility] 1 ALT (SGPT) 12 0 - 32 IU/L [facility] 1 Specimen Blood Narrative Performed At Performed at:[facility] - [facility] [address] [place], [id number] [employer] Supervisor: Bruce Leonardo MD, Phone:[phone] Performing Organization Address [facility] Phone Number [facility] 1 XR spine lumbar complete 4 views min (09/16/2018 9:51 AM [employer]) Specimen Narrative Performed At FINAL REPORT [facility] Lumbar spine, five images HISTORY: Low back pain COMPARISON: None IMPRESSION: Five lumbar type vertebral bodies. No evidence for fracture or subluxation. Minimal degenerative facet changes. Signed: Sylvia Diaz MD Report Verified Date/Time:09/16/2018 10:16:42 [place] Location: [address] Radiology [place] Procedure Note Interface, External Ris In - 09/16/2018 10:18 AM [employer] FINAL REPORT Lumbar spine, five images HISTORY: Low back pain COMPARISON: None IMPRESSION: Five lumbar type vertebral bodies. No evidence for fracture or subluxation. Minimal degenerative facet changes. Signed: Sylvia Diaz MD Report Verified Date/Time: 09/16/2018 10:16:42 [place] Location: [address] Radiology [place] Performing Organization Address [facility] Phone Number [facility] Vitamin D, 25-Hydroxy (04/06/2018 2:21 PM CDT) Vitamin D,25-Oh,Total TNP ng/mL [facility] Comment: * Test not performed. * * The additional test requested * * cannot be performed due to either * * the age or quantity of specimen.* Specimen Resulting Agency Comment Performing Organization Information: Site ID: [id number] Name: [facility] Address: [address] [place] [id number] Director: Elvi Knight Performing Organization Address [facility] Phone Number [facility] [address] [place] [address] [facility] Basic metabolic panel (04/06/2018 2:21 PM CDT) Glucose 84 65 - 99 mg/dL [facility] Comment: Fasting reference interval BUN 10 7 - 25 mg/dL [facility] Creatinine 0.68 0.50 - 1.10 mg/dL [facility] eGFR If NonAfricn Am 104 > OR=60 mL/min/1.73m2 [facility] eGFR If Africn Am 121 > OR=60 mL/min/1.73m2 [facility] BUN/Creatinine Ratio NOT APPLICABLE 6 - 22 (calc) [facility] Sodium 138 135 - 146 mmol/L [facility] Potassium, Serum 3.9 3.5 - 5.3 mmol/L [facility] Chloride 103 98 - 110 mmol/L [facility] Carbon Dioxide, Total 27 20 - 32 mmol/L [facility] Calcium, Serum 9.6 8.6 - 10.2 mg/dL [facility] Specimen Blood Resulting Agency Comment Performing Organization Information: Site ID: [id number] Name: [facility] Address: [address] [place] [phone] Director: Elvi Knight Performing Organization Address [facility] Phone Number [facility] [address] [place] [address] [facility] US Breast Bilateral (04/06/2018 9:20 AM CDT) Specimen Narrative Performed At N#: [id number] RIS #[id number] - MM, U/S, BREAST, BILATERAL ULTRASOUND OF BOTH BREASTS: 04/06/2018 Comparison is made to exam dated:03/26/2018 mammogram [facility]. Color flow and real-time ultrasound of both breasts were performed. Ultrasound of all four quadrants and the retroareolar breast was performed. Durán scale images of the real-time examination were reviewed. There is a benign 4 mm lymph node in the right breast at 10 o'clock posterior depth.This correlates with mammography findings. No suspicious abnormalities were seen sonographically in either breast. IMPRESSION: BENIGN The findings have been discussed with the patient. There is no sonographic evidence of malignancy. The 4 mm lymph node in the right breast is benign. A 1 year screening mammogram is recommended. Grace Kimball M.D. pth/:04/06/2018 15:21:43 Normal Exam Ultrasound BI-RADS: 2 Benign [id number] Procedure Note Interface, External Ris In - 04/06/2018 3:54 PM CDT #[id number] - MM, U/S, BREAST, BILATERAL ULTRASOUND OF BOTH BREASTS: 04/06/2018 Comparison is made to exam dated: 03/26/2018 mammogram [facility]. Color flow and real-time ultrasound of both breasts were performed. Ultrasound of all four quadrants and the retroareolar breast was performed. Durán scale images of the real-time examination were reviewed. There is a benign 4 mm lymph node in the right breast at 10 o'clock posterior depth. This correlates with mammography findings. No suspicious abnormalities were seen sonographically in either breast. IMPRESSION: BENIGN The findings have been discussed with the patient. There is no sonographic evidence of malignancy. The 4 mm lymph node in the right breast is benign. A 1 year screening mammogram is recommended. Grace Kimball M.D. pth/:04/06/2018 15:21:43 Normal Exam Ultrasound BI-RADS: 2 Benign [id number] Performing Organization Address City/State/Zipcode Phone Number GE RIS after 03/29/2018 Insurance Payer Benefit Plan / Group Subscriber ID Type Phone Address [employer] - [employer] HMO POS QPOS xxxxxxxxx HMO/POS Advance Directives For more information, please contact:[address] [phone] Code Status Date Activated Date Inactivated Comments Full Code 12/19/2017 5:38 PM 12/22/2017 1:19 PM This code status was determined by: Patient
--- OUTSIDE RECORDS SUMMARY | 2019-03-30 14:22 | XMS REPORT ---
:1970 [facility] Address [address] [place] [address] Care Team Providers Name Role Phone MARINA ANTOINE Unavailable Unavailable Payers Payer Name Policy Type Policy Number Effective Date Expiration Date Problems This patient has no known problems. Allergies, Adverse Reactions, Alerts Allergy Allergy Status Severity Reaction(s) Onset Inactive Treating Comments Name Type Date Date Clinician oxycodone DA Active SV 2018-09 00:00:0 0 Medications This patient has no known medications. Results Test Description Test Time Test Comments Text Results Atomic Results Result Comments - CT ABD PELVIS W/CONT 2018-09-18 00:27:00 Name: SÁNCHEZ GAITAN : 1970 Age/S: 48 / F [address] Unit #: [id number] Loc: [place] [address] Phys: Jose Guadalupe Schneider MD Acct: [id number] Dis Date: Status: REG ER PHONE #: [phone] Exam Date: 09/17/2018 2350 FAX #: Reason: left flank pain EXAMS: CPT: [id number] CT ABD PELVIS W/CONT 56763 LOCATION: Q15 HISTORY: 48-year-old female with flank pain. COMMENT: Field [address] imaging of this patient's abdomen and pelvis was obtained with IV contrast. Coronal and sagittal soft tissue reconstructions were included. Field 5 CONTRAST: 100 mL of Isovue-300 nonionic contrast was injected into the left antecubital vein. The serum creatinine level was 1.0 and the estimated GFR was greater than 60 mL/m. One or more of the following dose reduction techniques are used: Automated exposure control, adjustment of the mA and/or kV according the patient size, and/or utilization of iterative reconstruction technique. DLP: 629.02 mGy-cm FINDINGS: The lung bases are clear. The cardiac silhouette is unremarkable. The liver, spleen, pancreas, adrenal glands, kidneys, and gallbladder are unremarkable. The upper intestinal tract is unremarkable. No abnormalities seen in the small intestinal tract. A normal-appearing appendix is seen. The colon is unremarkable. There is no ascites or adenopathy present. In the pelvis the urinary bladder is unremarkable. The uterus is not seen in either ovary is seen. The vascular anatomy is unremarkable. The musculoskeletal anatomy is unremarkable. IMPRESSION: Unremarkable CT examination of the abdomen and pelvis. PAGE 1 Signed Report (CONTINUED) Name: SÁNCHEZ GAITAN Sutton : 1970 Age/S: 48 / F [address] Unit #: [id number] Loc: [place] [address] Phys: Jose Guadalupe Schneider MD Acct: [id number] Dis Date: Status: REG ER PHONE #: [phone] Exam Date: 09/17/2018 2358 FAX #: Reason: left flank pain EXAMS: CPT: [id number] CT ABD PELVIS W/CONT 70856 <Continued> at 0027 Reported and signed by: Cassius Swan M.D. CC: Technologist:RT Valarie(R)Ayden Castillo CTDI: DLP: Trnscb Date/Time: 09/18/2018 (0027) [email or web address] Orig Print D/T: S: 09/18/2018 (0030) CTDI: DLP: PAGE 2 Signed Report COMPREHENSIVE METABOLIC PANEL 2018-09-17 23:29:00 Test Item Value Reference Range Comments SODIUM (test code=NA) 138 mmol/L 134-147 POTASSIUM (test code=K) 3.4 mmol/L 3.4-5.0 CHLORIDE (test code=CL) 103 mmol/L 100-108 CARBON DIOXIDE (test code=CO2) 27 mmol/L 21-32 ANION GAP (test code=GAP) 8.0 GAP calc 4.0-15.0 GLUCOSE (test code=GLU) 113 MG/DL 70-110 BLOOD UREA NITROGEN (test code=BUN) 18 MG/DL 7-18 GLOMERULAR FILTRATION RATE (test code=GFR) >=60 max estimate estGFR >60 CREATININE (test code=CREAT) 1.0 MG/DL 0.6-1.0 TOTAL PROTEIN (test code=PROT) 7.8 G/DL 6.4-8.2 ALBUMIN (test code=ALB) 3.6 G/DL 3.4-5.0 GLOBULIN (test code=GLOB) 4.2 GM/dL ALBUMIN/GLOBULIN RATIO (test code=A/G) 0.9 RATIO 1.2-2.2 CALCIUM (test code=CA) 9.3 MG/DL 8.5-10.1 BILIRUBIN TOTAL (test code=BILT) 0.10 MG/DL 0.2-1.2 SGOT/AST (test code=AST) 8 Unit/L 15-37 SGPT/ALT (test code=ALT) 15 Unit/L 12-78 ALKALINE PHOSPHATASE TOTAL (test code=ALKP) 73 Unit/L 45-117 CBC W/AUTO [id number] 23:26:00 Test Item Value Reference Range Comments WHITE BLOOD CELL (test code=WBC) 12.7 K/mm3 3.5-11.0 RED BLOOD CELL (test code=RBC) 4.67 M/mm3 4.70-6.10 HEMOGLOBIN (test code=HGB) 13.1 G/DL 10.4-14.9 HEMATOCRIT (test code=HCT) 39.9 % 31.5-44.1 MEAN CELL VOLUME (test code=MCV) 85.4 Fl 84.5-98.6 MEAN CELL HGB (test code=MCH) 28.1 pg 27.0-34.2 MEAN CELL HGB CONCETRATION (test code=MCHC) 32.8 G/DL 31.5-34.0 RED CELL DISTRIBUTION WIDTH (test code=RDW) 15.8 SD 11.5-14.5 PLATELET COUNT (test code=PLT) 329.0 K/mm3 150-450 MEAN PLATELET VOLUME (test code=MPV) 9.90 fL 7.0-10.5 NEUTROPHIL % (test code=NT%) 58.2 % 40-76 LYMPHOCYTE % (test code=LY%) 33.4 % 20.5-51.1 MONOCYTE % (test code=MO%) 6.6 % 1.7-9.3 EOSINOPHIL % (test code=EO%) 1.6 % 0.0-6.0 BASOPHIL % (test code=BA%) 0.2 % 0.0-2.0 NEUTROPHIL # (test code=NT#) 7.36 K/mm3 1.8-7.6 LYMPHOCYTE # (test code=LY#) 4.2 K/mm3 0.6-3.2 MONOCYTE # (test code=MO#) 0.8 K/mm3 0.3-1.1 EOSINOPHIL # (test code=EO#) 0.2 K/mm3 0.0-0.4 BASOPHIL # (test code=BA#) 0.0 K/mm3 0.0-0.1 MANUAL DIFF REQUIRED (test code=MDIFF) NO DIFF/SCN CRITERIA COMPREHENSIVE METABOLIC [id number] 23:26:00 Test Item Value Reference Range Comments SODIUM (test code=NA) 138 mmol/L 134-147 POTASSIUM (test code=K) 3.4 mmol/L 3.4-5.0 CHLORIDE (test code=CL) 103 mmol/L 100-108 CARBON DIOXIDE (test code=CO2) 27 mmol/L 21-32 ANION GAP (test code=GAP) 8.0 GAP calc 4.0-15.0 GLUCOSE (test code=GLU) 113 MG/DL 70-110 BLOOD UREA NITROGEN (test code=BUN) 18 MG/DL 7-18 GLOMERULAR FILTRATION RATE (test code=GFR) estGFR >60 CREATININE (test code=CREAT) MG/DL 0.6-1.0 TOTAL PROTEIN (test code=PROT) G/DL 6.4-8.2 ALBUMIN (test code=ALB) G/DL 3.4-5.0 GLOBULIN (test code=GLOB) GM/dL ALBUMIN/GLOBULIN RATIO (test code=A/G) RATIO 1.2-2.2 CALCIUM (test code=CA) 9.3 MG/DL 8.5-10.1 BILIRUBIN TOTAL (test code=BILT) MG/DL 0.2-1.2 SGOT/AST (test code=AST) Unit/L 15-37 SGPT/ALT (test code=ALT) Unit/L 12-78 ALKALINE PHOSPHATASE TOTAL (test code=ALKP) Unit/L 45-117 URINALYSIS [id number] 23:15:00 Test Item Value Reference Range Comments UA COLOR (test code=COLU) YELLOW discript YEL/STRAW UA APPEARANCE (test code=APPU) CLEAR discript CLEAR UA GLUCOSE DIPSTICK (test code=DGLUU) NEGATIVE mg/dL NEG UA BILIRUBIN DIPSTICK (test code=BILU) NEGATIVE mg/dL NEG UA KETONE DIPSTICK (test code=KETU) NEGATIVE mg/dL NEG UA SPECIFIC GRAVITY (test code=SGU) 1.010 SG 1.005-1.030 UA BLOOD DIPSTICK (test code=ADELA) 1+ mg/DL NEG UA PH DIPSTICK (test code=DOMINGO) 7.0 pH UNITS 5.0-7.0 UA PROTEIN DIPSTICK (test code=PROU) NEGATIVE mg/dL NEG UA UROBILINIOGEN DIPSTICK (test code=URO) 1.0 mg/dL <2.0 UA NITRITE DIPSTICK (test code=SOLOMON) NEGATIVE SCREEN NEG UA LEUKOCYTE ESTERASE DIPSTICK (test 1+ Leuk/mcL NEGATIVE code=LEUU) UA WBC (test code=WBCU) 3-5 #WBC/HPF 0-3 UA RBC (test code=RBCU) 3-5 #RBC/HPF 0-3 UA BACTERIA (test code=BACU) NONE SEEN /HPF NONE-TRACE UA SQUAMOUS CELLS (test code=SQU) 1+ /HPF NONE URINALYSIS [id number] 23:01:00 Test Item Value Reference Range Comments UA COLOR (test code=COLU) YELLOW discript YEL/STRAW UA APPEARANCE (test code=APPU) CLEAR discript CLEAR UA GLUCOSE DIPSTICK (test code=DGLUU) NEGATIVE mg/dL NEG UA BILIRUBIN DIPSTICK (test code=BILU) NEGATIVE mg/dL NEG UA KETONE DIPSTICK (test code=KETU) NEGATIVE mg/dL NEG UA SPECIFIC GRAVITY (test code=SGU) 1.010 SG 1.005-1.030 UA BLOOD DIPSTICK (test code=ADELA) 1+ mg/DL NEG UA PH DIPSTICK (test code=DOMINGO) 7.0 pH UNITS 5.0-7.0 UA PROTEIN DIPSTICK (test code=PROU) NEGATIVE mg/dL NEG UA UROBILINIOGEN DIPSTICK (test code=URO) 1.0 mg/dL <2.0 UA NITRITE DIPSTICK (test code=SOLOMON) NEGATIVE SCREEN NEG UA LEUKOCYTE ESTERASE DIPSTICK (test 1+ Leuk/mcL NEGATIVE code=LEUU) RAD, SPINE, LUMBAR, COMPLETE (MIN 4 VIEWS)2018-09-16 10:16:00Reason for Exam:-& gt;low back painFINAL REPORT Lumbar spine, five images HISTORY: Low back pain COMPARISON: None IMPRESSION:Five lumbar type vertebral bodies. No evidence for fracture or subluxation. Minimal degenerative facet changes. Signed: Sylvia Diaz MDReport Verified Date/Time: 09/16/2018 10:16: 42 Reading Location: [address] Radiology Reading Room MM, U/S, BREAST, [id number] 15:21:00Reason for Exam:->n63MRN#: [id number] - MM , U/S, BREAST, BILATERALULTRASOUND OF BOTH BREASTS: 04/06/2018Comparison is made to exam dated: 03/26/2018 mammogram - [facility]. Color flow and real-time ultrasound of [...] 1 year screening mammogram is recommended. Grace Mejias M.D. pth/:04/06/2018 15:21: 43 Normal Exam Ultrasound BI-RADS: 2 Benign 88916 U/SPELVIS WITH ENDOVAG [id number] 15:26:00Reason for Exam:->Z12.31 N91.2FINAL REPORT TECHNIQUE: Transabdominal and transvaginal grayscale ultrasound of the pelvis with color Doppler and spectral Doppler ultrasound of the ovaries. INDICATION: 47-year-old woman with excessive and frequent menstruation with irregular cycle. COMPARISON: None. FINDINGS:UTERUS: Prior hysterectomy. OVARIES /ADNEXA: Left ovary is not identified, and may have been removed.The right ovary is unremarkable in appearance and measures 3.6 x 2.6 x 3.3 cm. Tubular fluid-filled structure adjacent to the right ovary measures 4.4 x 1 x 2.3 cm. Arterial and venous flow detected inthe right ovary. PELVIS: No free fluid. IMPRESSION:Prior hysterectomy. Left ovary is not identified, and may have been removed. Right ovary is unremarkable. Tubular fluid-filled structure adjacent to the right ovary, suggestive of hydrosalpinx. Signed: Rosalee Tello MDReport Verified Date/Time: 03/26/2018 15:26:07 Reading Location: [address] Radiology Reading Room MM, DIGITAL, MAMMO, SCREENING, BILATERAL INCLUDING [id number] 14:03:00Reason for Exam:->Z12.31 N91.2MRN#: [id number] - MM, DIGITAL, MAMMO, SCREENING, BILATERAL INCLUDING CADBILATERAL DIGITAL SCREENING MAMMOGRAM WITH CAD: 03/26/2018CLINICAL: Routine screening mammogram. No prior films are available for comparison. Lack of availability of prior films for comparison reduces the sensitivity of mammography. The tissue of both breasts is heterogeneously dense. This may lower the sensitivity of mammography. Current study was also evaluated with a Computer Aided Detection (CAD) system. There jean claude 6 mm oval mass in the right breast upper outer aspect posterior depth. Benign appearing calcifications are noted in both breasts. No other significant findings are seen in either breast. IMPRESSION: INCOMPLETE: NEEDS ADDITIONAL IMAGING EVALUATIONThe 6 mm oval mass in the right breast may representan intramammary node but is indeterminate. Comparison to prior mammograms is recommended. Otherwise, an ultrasound is recommended for further evaluation, unless prior studies are received in 14-21 days and demonstrate no significant interval change. Joey Estevez M.D. ds/:03/26/2018 14: 03:48 Addional Imaging Needed Mammogram BI-RADS: 0 Indeterminate G0202 BLOOD [id number] 00:00:00 Test Item Value Reference Range Comments CULTURE (BEAKER) (test boem=8967) No growth in 5 days BLOOD [id number] 00:00:00 Test Item Value Reference Range Comments CULTURE (BEAKER) (test qfqy=8462) No growth in 5 days BASIC METABOLIC [id number] 03:45:00 Test Item Value Reference Range Comments SODIUM (BEAKER) (test 140 meq/L 136-145 eoon=894) POTASSIUM (BEAKER) (test 3.6 meq/L 3.5-5.1 Specimen slightly mxxy=337) hemolyzed CHLORIDE (BEAKER) (test 110 meq/L 98-107 baju=846) CO2 (BEAKER) (test 22 meq/L 22-29 pgrw=212) BLOOD UREA NITROGEN 10 mg/dL 7-21 (BEAKER) (test vekk=567) CREATININE (BEAKER) (test 0.61 mg/dL 0.57-1.25 Specimen slightly qqfb=278) hemolyzed GLUCOSE RANDOM (BEAKER) 91 mg/dL 70-105 (test iufw=403) CALCIUM (BEAKER) (test 8.3 mg/dL 8.4-10.2 lcjj=094) EGFR (BEAKER) (test 127 mL/min/1.73 sq m ESTIMATED GFR IS NOT fhex=6309) ACCURATE CREATININE CLEARANCE IN PREDICTING GLOMERULAR FILTRATION RATE. ESTIMATED GFR IS NOT APPLICABLE FOR DIALYSIS PATIENTS. CBC W/PLT COUNT & AUTO [id number] 03:37:00 Test Item Value Reference Range Comments WHITE BLOOD CELL COUNT (BEAKER) (test mzdz=669) 7.8 K/ L 3.5-10.5 RED BLOOD CELL COUNT (BEAKER) (test xgom=632) 4.18 M/ L 3.93-5.22 HEMOGLOBIN (BEAKER) (test epgk=887) 11.7 GM/DL 11.2-15.7 HEMATOCRIT (BEAKER) (test oghl=903) 35.7 % 34.1-44.9 MEAN CORPUSCULAR VOLUME (BEAKER) (test junk=994) 85.4 fL 79.4-94.8 MEAN CORPUSCULAR HEMOGLOBIN (BEAKER) (test 28.0 pg 25.6-32.2 pugx=139) MEAN CORPUSCULAR HEMOGLOBIN CONC (BEAKER) (test 32.8 GM/DL 32.2-35.5 ejpa=127) RED CELL DISTRIBUTION WIDTH (BEAKER) (test 15.1 % 11.7-14.4 pjsl=712) PLATELET COUNT (BEAKER) (test vrik=757) 314 K/CU MM 150-450 MEAN PLATELET VOLUME (BEAKER) (test upra=571) 9.8 fL 9.4-12.3 NUCLEATED RED BLOOD CELLS (BEAKER) (test 0 /100 WBC 0-0 aotc=841) NEUTROPHILS RELATIVE PERCENT (BEAKER) (test 44 % rmbe=618) LYMPHOCYTES RELATIVE PERCENT (BEAKER) (test 45 % fwgu=519) MONOCYTES RELATIVE PERCENT (BEAKER) (test 7 % ctpt=049) EOSINOPHILS RELATIVE PERCENT (BEAKER) (test 3 % nvfk=760) BASOPHILS RELATIVE PERCENT (BEAKER) (test 1 % ubmx=191) NEUTROPHILS ABSOLUTE COUNT (BEAKER) (test 3.45 K/ L 1.56-6.13 qddk=608) LYMPHOCYTES ABSOLUTE COUNT (BEAKER) (test 3.51 K/ L 1.18-3.74 ruqn=091) MONOCYTES ABSOLUTE COUNT (BEAKER) (test 0.53 K/ L 0.24-0.36 orrk=505) EOSINOPHILS ABSOLUTE COUNT (BEAKER) (test 0.26 K/ L 0.04-0.36 jprs=956) BASOPHILS ABSOLUTE COUNT (BEAKER) (test 0.06 K/ L 0.01-0.08 kzgs=439) IMMATURE GRANULOCYTES-RELATIVE PERCENT (BEAKER) 0 % 0-1 (test wqbg=0016) URINE [id number] 13:01:00 Test Item Value Reference Range Comments CULTURE (BEAKER) (test ioyi=2492) No growth SPUTUM CULTURE + GRAM [id number] 07:59:00 Test Item Value Reference Range Comments CULTURE (BEAKER) (test 2+ Normal respiratory adele dlmt=2873) present GRAM STAIN RESULT (BEAKER) 1+ WBCs (test lxkr=4468) GRAM STAIN RESULT (BEAKER) 0-5 epithelial cells (test mqbt=47337) GRAM STAIN RESULT (BEAKER) No organisms seen (test snrz=53621) BASIC METABOLIC [id number] 05:53:00 Test Item Value Reference Range Comments SODIUM (BEAKER) (test 140 meq/L 136-145 baqe=469) POTASSIUM (BEAKER) (test 3.8 meq/L 3.5-5.1 rkgd=360) CHLORIDE (BEAKER) (test 109 meq/L 98-107 hkdz=350) CO2 (BEAKER) (test 23 meq/L 22-29 fefi=114) BLOOD UREA NITROGEN 11 mg/dL 7-21 (BEAKER) (test mwcq=265) CREATININE (BEAKER) (test 0.66 mg/dL 0.57-1.25 gcph=142) GLUCOSE RANDOM (BEAKER) 83 mg/dL 70-105 (test iwcn=499) CALCIUM (BEAKER) (test 9.5 mg/dL 8.4-10.2 ghgt=292) EGFR (BEAKER) (test 116 mL/min/1.73 sq m ESTIMATED GFR IS NOT hylu=5231) ACCURATE CREATININE CLEARANCE IN PREDICTING GLOMERULAR FILTRATION RATE. ESTIMATED GFR IS NOT APPLICABLE FOR DIALYSIS PATIENTS. LACTIC ACID, VENOUS, WHOLE [id number] 05:40:00 Test Item Value Reference Range Comments LACTATE BLOOD VENOUS (2) (BEAKER) (test 0.9 mmol/L 0.5-2.2 mkgt=5571) Effective 11/15/2015: Units/Reference Range ChangeNew: 0.5-2.2 mmol/L Previous: 5 -20 mg/dLCBC W/PLT COUNT & AUTO [id number] 05:34:00 Test Item Value Reference Range Comments WHITE BLOOD CELL COUNT (BEAKER) (test mbaz=672) 8.7 K/ L 3.5-10.5 RED BLOOD CELL COUNT (BEAKER) (test wfcv=957) 4.37 M/ L 3.93-5.22 HEMOGLOBIN (BEAKER) (test rmit=290) 12.2 GM/DL 11.2-15.7 HEMATOCRIT (BEAKER) (test drdi=304) 38.0 % 34.1-44.9 MEAN CORPUSCULAR VOLUME (BEAKER) (test iohq=933) 87.0 fL 79.4-94.8 MEAN CORPUSCULAR HEMOGLOBIN (BEAKER) (test 27.9 pg 25.6-32.2 xepy=497) MEAN CORPUSCULAR HEMOGLOBIN CONC (BEAKER) (test 32.1 GM/DL 32.2-35.5 bfle=613) RED CELL DISTRIBUTION WIDTH (BEAKER) (test 15.3 % 11.7-14.4 jzig=858) PLATELET COUNT (BEAKER) (test gaix=067) 301 K/CU MM 150-450 MEAN PLATELET VOLUME (BEAKER) (test zzrg=993) 10.0 fL 9.4-12.3 NUCLEATED RED BLOOD CELLS (BEAKER) (test 0 /100 WBC 0-0 ndkj=460) NEUTROPHILS RELATIVE PERCENT (BEAKER) (test 51 % oahq=812) LYMPHOCYTES RELATIVE PERCENT (BEAKER) (test 37 % zsgw=515) MONOCYTES RELATIVE PERCENT (BEAKER) (test 8 % ioef=372) EOSINOPHILS RELATIVE PERCENT (BEAKER) (test 3 % eigl=690) BASOPHILS RELATIVE PERCENT (BEAKER) (test 1 % mmdb=560) NEUTROPHILS ABSOLUTE COUNT (BEAKER) (test 4.46 K/ L 1.56-6.13 xznl=805) LYMPHOCYTES ABSOLUTE COUNT (BEAKER) (test 3.22 K/ L 1.18-3.74 pwaz=898) MONOCYTES ABSOLUTE COUNT (BEAKER) (test 0.73 K/ L 0.24-0.36 pgye=749) EOSINOPHILS ABSOLUTE COUNT (BEAKER) (test 0.23 K/ L 0.04-0.36 alon=534) BASOPHILS ABSOLUTE COUNT (BEAKER) (test 0.04 K/ L 0.01-0.08 rzac=486) IMMATURE GRANULOCYTES-RELATIVE PERCENT (BEAKER) 0 % 0-1 (test szmv=1849) MR, BRAIN, WITHOUT [id number] 13:46:00FINAL REPORT MRI brain Comparison: CTA dated December 19, 2017 Reason for exam: Stroke Discussion: Sagittal and coronal T1, axial FLAIR, T2, gradient echo T2 star, diffusion sequences and ADC map images of the brain are provided. There are no intracranial hematomas, mass effect, hydrocephalus, shift, or extra-axial collections. Minimal white matter T2 and FLAIR hyperintensity probably reflects chronic microvascular ischemic change. There are no areas of abnormal diffusion restriction. Flow-voids are seen in the basilar and internal carotid arteries as well as in the large posterior dural sinuses. The pineal, sella, and craniocervical junction regions are within normal limits. The visualized orbital contents, skullbase and surrounding soft tissues are unremarkable. There is mild paranasal sinus opacification. Mastoid air cells are clear. Impressions:No acute intracranial process. Signed: Rocael Mckeon MDReport Verified Date/Time: 12/20/2017 13:46:18 Reading Location: [address] Neuro Reading Room HEMOGLOBIN [id number] 08:41:00 Test Item Value Reference Range Comments HEMOGLOBIN A1C (BEAKER) (test kjkf=408) 6.2 % 4.3-6.1 HEPATIC FUNCTION [id number] 06:54:00 Test Item Value Reference Range Comments TOTAL PROTEIN (BEAKER) (test idtt=207) 6.6 gm/dL 6.0-8.3 ALBUMIN (BEAKER) (test dwly=0921) 3.9 g/dL 3.5-5.0 BILIRUBIN TOTAL (BEAKER) (test fajk=564) 0.4 mg/dL 0.2-1.2 BILIRUBIN DIRECT (BEAKER) (test kbic=210) 0.2 mg/dL 0.1-0.5 ALKALINE PHOSPHATASE (BEAKER) (test nlwk=987) 58 U/L 40-150 AST (SGOT) (BEAKER) (test ngjv=939) 15 U/L 5-34 ALT (SGPT) (BEAKER) (test pauk=044) 8 U/L 6-55 BASIC METABOLIC [id number] 06:54:00 Test Item Value Reference Range Comments SODIUM (BEAKER) (test 141 meq/L 136-145 docr=150) POTASSIUM (BEAKER) (test 3.4 meq/L 3.5-5.1 lcnv=924) CHLORIDE (BEAKER) (test 107 meq/L 98-107 vsjy=642) CO2 (BEAKER) (test 25 meq/L 22-29 wrdw=115) BLOOD UREA NITROGEN 11 mg/dL 7-21 (BEAKER) (test pszx=852) CREATININE (BEAKER) (test 0.67 mg/dL 0.57-1.25 fzdl=513) GLUCOSE RANDOM (BEAKER) 88 mg/dL 70-105 (test djpe=715) CALCIUM (BEAKER) (test 8.9 mg/dL 8.4-10.2 jaem=064) EGFR (BEAKER) (test 114 mL/min/1.73 sq m ESTIMATED GFR IS NOT xtdd=9388) ACCURATE CREATININE CLEARANCE IN PREDICTING GLOMERULAR FILTRATION RATE. ESTIMATED GFR IS NOT APPLICABLE FOR DIALYSIS PATIENTS. LACTIC ACID, VENOUS, WHOLE [id number] 06:54:00 Test Item Value Reference Range Comments LACTATE BLOOD VENOUS (2) 1.0 mmol/L 0.5-2.2 Specimen slightly hemolyzed (BEAKER) (test bmqs=0845) Effective 11/15/2015: Units/Reference Range ChangeNew: 0.5-2.2 mmol/L Previous: 5 -20 mg/dLRAD, CHEST, 1 VIEW, NON [id number] 06:45:00Reason for exam:-> eval lungsShould this be performed at the bedside?->YesFINAL REPORT Chest one view. Clinical history: Stroke. Comparison: None. Technique: A single frontal view of the chest was obtained. Findings: The heart is normal in size. The aorta is uncoiled. There is mild prominence of the interstitium which may be due to vascular crowdinghowever interstitial edema cannot be excluded. There is no focal pulmonary, pleural effusion or pneumothorax. The bony thorax is unremarkable. Signed: Kei Floreseport Verified Date/Time: 12/20/2017 06:45:56 Reading Location: [address] Transitional Reading Room CBC W/PLT COUNT & AUTO [id number] 06:38:00 Test Item Value Reference Range Comments WHITE BLOOD CELL COUNT (BEAKER) (test hmut=408) 12.5 K/ L 3.5-10.5 RED BLOOD CELL COUNT (BEAKER) (test gzar=770) 4.26 M/ L 3.93-5.22 HEMOGLOBIN (BEAKER) (test pvdn=351) 11.8 GM/DL 11.2-15.7 HEMATOCRIT (BEAKER) (test ypqq=709) 37.1 % 34.1-44.9 MEAN CORPUSCULAR VOLUME (BEAKER) (test pvox=618) 87.1 fL 79.4-94.8 MEAN CORPUSCULAR HEMOGLOBIN (BEAKER) (test 27.7 pg 25.6-32.2 qbdx=249) MEAN CORPUSCULAR HEMOGLOBIN CONC (BEAKER) (test 31.8 GM/DL 32.2-35.5 vpsi=411) RED CELL DISTRIBUTION WIDTH (BEAKER) (test 15.5 % 11.7-14.4 vjwz=353) PLATELET COUNT (BEAKER) (test impy=941) 321 K/CU MM 150-450 MEAN PLATELET VOLUME (BEAKER) (test hmbr=681) 10.1 fL 9.4-12.3 NUCLEATED RED BLOOD CELLS (BEAKER) (test 0 /100 WBC 0-0 fiql=773) NEUTROPHILS RELATIVE PERCENT (BEAKER) (test 64 % tidx=162) LYMPHOCYTES RELATIVE PERCENT (BEAKER) (test 30 % dnut=997) MONOCYTES RELATIVE PERCENT (BEAKER) (test 5 % vhsw=860) EOSINOPHILS RELATIVE PERCENT (BEAKER) (test 1 % ldol=627) BASOPHILS RELATIVE PERCENT (BEAKER) (test 0 % apzq=937) NEUTROPHILS ABSOLUTE COUNT (BEAKER) (test 7.92 K/ L 1.56-6.13 bwmn=193) LYMPHOCYTES ABSOLUTE COUNT (BEAKER) (test 3.74 K/ L 1.18-3.74 smrk=133) MONOCYTES ABSOLUTE COUNT (BEAKER) (test 0.63 K/ L 0.24-0.36 tgva=567) EOSINOPHILS ABSOLUTE COUNT (BEAKER) (test 0.09 K/ L 0.04-0.36 tqoq=799) BASOPHILS ABSOLUTE COUNT (BEAKER) (test 0.05 K/ L 0.01-0.08 bkdu=499) IMMATURE GRANULOCYTES-RELATIVE PERCENT (BEAKER) 0 % 0-1 (test vaga=0689) [id number] 00:55:00 Test Item Value Reference Range Comments RPR SCREEN (BEAKER) (test bjea=127) Nonreactive Nonreactive STREP PNEUMONIAE [id number] 20:23:00 Test Item Value Reference Range Comments STREP PNEUMONIAE ANTIGEN Presumptive negative for Presumptive negative for (MAIA) (test pneumococcal pneumonia - pneumococcal pneumonia - syci=2638) see comment see commen Presumptive negative for pneumococcal pneumonia, suggesting no current or recent pneumococcal infection. Infection due to S. pneumoniae cannot be ruled out since the antigen present in the sample may be below the detection limit of the test.LEGIONELLA ANTIGEN, [id number] 20:22:00 Test Item Value Reference Range Comments L. PNEUMOPHILA SEROGP 1 Negative - see Negative for L. UR AG ([place]) (test comment pneumophila serogroup 1 mtfy=8830) antigen, suggesting no recent or current infection with this serogroup. Legionellosis cannot be ruled out since other serogroups and species may cause disease. VITAMIN [id number] 19:30:00 Test Item Value Reference Range Comments VITAMIN B12 ([place]) (test kado=845) 826 pg/mL 213-816 [id number] 19:24:00 Test Item Value Reference Range Comments PROCALCITONIN ([place]) (test muuy=4146) < ng/mL <0.05 SEPSIS RISK (ng/mL)Low: 0.05-0.50Intermediate: 0.51-2.00High: & gt;=2.01LIPID [id number] 19:03:00 Test Item Value Reference Range Comments TRIGLYCERIDES ([place]) (test opjm=305) 85 mg/dL CHOLESTEROL ([place]) (test mwyj=600) 183 mg/dL HDL CHOLESTEROL ([place]) (test bbgl=870) 42 mg/dL LDL CHOLESTEROL CALCULATED ([place]) (test 124 mg/dL ujcw=645) Triglyceride Reference Range: Low Risk <150 Borderline 150- 199 High Risk 200-499 Very High Risk >=500Cholesterol Reference Range: Low Risk <200 Borderline 200-239 High Risk > 240HDL Cholesterol Reference Range: Low Risk >=60 High Risk <40LDL Cholesterol Reference Range: Optimal <100 Near Optimal 100-129 Borderline 130-159 High 160-189 Very High >=190PHENYTOIN LEVEL, [id number] 18:43:00 Test Item Value Reference Range Comments PHENYTOIN (DILANTIN) (BEAKER) (test pmpk=930) 7.8 ug/mL 10.0-20.0 LACTIC ACID, VENOUS, WHOLE [id number] 18:36:00 Test Item Value Reference Range Comments LACTATE BLOOD VENOUS (2) 2.2 mmol/L 0.5-2.2 Specimen slightly hemolyzed (BEAKER) (test rjrt=8328) Effective 11/15/2015: Units/Reference Range ChangeNew: 0.5-2.2 mmol/L Previous: 5 -20 mg/dLBLOOD GAS, [id number] 18:33:00 Test Item Value Reference Range Comments PH ARTERIAL (BEAKER) (test qtae=163) 7.40 7.35-7.45 PCO2 ARTERIAL (BEAKER) (test sphp=975) 35 mmHg 35-45 PO2 ARTERIAL (BEAKER) (test lajn=747) 175 mmHg 80-90 O2 SATURATION ARTERIAL (BEAKER) (test bvxy=438) 99.2 % 96.0-97.0 HCO3 ARTERIAL (BEAKER) (test jida=417) 21 mmol/L 21-29 BASE EXCESS ARTERIAL (BEAKER) (test cpeq=586) -3.0 mmol/L -2.0-3.0 PATIENT TEMPERATURE (BEAKER) (test joke=0124) 36.7 C FIO2 (BEAKER) (test aagk=8712) 60.0 % URINALYSIS W/ [id number] 18:26:00 Test Item Value Reference Range Comments COLOR (BEAKER) (test piby=800) Yellow CLARITY (BEAKER) (test hjcy=550) Clear SPECIFIC GRAVITY UA (BEAKER) (test jxtk=336) 1.019 1.001-1.035 PH UA (BEAKER) (test nnqh=384) 6.5 5.0-8.0 PROTEIN UA (BEAKER) (test este=101) 70 mg/dL Negative GLUCOSE UA (BEAKER) (test osax=397) Negative Negative KETONES UA (BEAKER) (test ibri=902) Negative Negative BILIRUBIN UA (BEAKER) (test gxkz=371) Negative Negative BLOOD UA (BEAKER) (test ryjh=018) Trace Negative NITRITE UA (BEAKER) (test ktrp=504) Negative Negative LEUKOCYTE ESTERASE UA (BEAKER) (test scuc=967) Negative Negative UROBILINOGEN UA (BEAKER) (test cflk=050) 0.2 mg/dL 0.2-1.0 RBC UA (BEAKER) (test uymo=051) 6 /HPF WBC UA (BEAKER) (test pwku=000) 2 /HPF MUCUS (BEAKER) (test wigx=7983) Occasional SQUAMOUS EPITHELIAL (BEAKER) (test iahn=661) < /HPF HYALINE CASTS (BEAKER) (test aowr=221) 2 /LPF SOURCE(BEAKER) (test wmjp=5314) Urine, [place] CT, CTANGIO [id number] 16:54:00FINAL REPORT CTA carotids and brain 12/19/2017 4:42 PM CLINICAL INDICATION: Stroke COMPARISON: None available TECHNIQUE: Noncontrast axial CT images of the head were obtained. Subsequently, axial CT angiographic images of the upper chest, neck, and head were obtained, from which three-dimensional reconstructed images were created. Additional imaging series were created on an independent workstation using maximum intensity projection and volume rendered technique. This examination was performed according to our departmental dose optimization program, which includes automated exposure control, adjustment of the mA and/or kV according to patient size, and/or use of iterated reconstruction technique. FINDINGS: There is no intracranial hemorrhage, mass, hydrocephalus, extra-axial collection, or midline shift. There is no CT evidence for cerebral infarction. Poor contrast bolus timing limits this examination. Pathology may be obscured. With this limitation mind, there is no vessel occlusion in the intracranial or extracranial arterial vasculature. There is no NASCET quantifiablecervical internal carotid artery stenosis. There is no remarkable stenosis elsewhere in the intracranial or extracranial arterial vasculature. The visualized soft tissue and skeleton are without worrisome finding. IMPRESSION: Limited, but otherwise unremarkable intracranial and extracranial CTAs. Signed: Julius Haynes Verified Date/Time: 12/19/2017 16:54:04 Reading Location: [facility] Reading Room CT, CAROTID, [id number] 16:54:00FINAL REPORT CTA carotids and brain 12/19/2017 4:42 PM CLINICAL INDICATION: Stroke COMPARISON: None available TECHNIQUE: Noncontrast axial CT images of the head were obtained. Subsequently, axial CT angiographic images of the upper chest, neck, and head were obtained, from which three-dimensional reconstructed images were created. Additional imaging series were created on an independent workstation using maximum intensity projection and volume rendered technique. This examination was performed according to our departmental dose optimization program, which includes automated exposure control, adjustment of the mA and/or kV according to patient size, and/or use of iterated reconstruction technique. FINDINGS: There is no intracranial hemorrhage, mass, hydrocephalus, extra-axial collection, or midline shift. There is no CT evidence for cerebral infarction. Poor contrast bolus timing limits this examination. Pathology may be obscured. With this limitation mind, there is no vessel occlusion in the intracranial or extracranial arterial vasculature. There is no NASCET quantifiablecervical internal carotid artery stenosis. There is no remarkable stenosis elsewhere in the intracranial or extracranial arterial vasculature. The visualized soft tissue and skeleton are without worrisome finding. IMPRESSION: Limited, but otherwise unremarkable intracranial and extracranial CTAs. Signed: [facility] Verified Date/Time: 02/2018 16:54:04 Reading Location: [facility] Reading Room
--- OUTSIDE RECORDS SUMMARY | 2019-03-30 14:22 | XMS REPORT | Summary of Care ---
:1970 Author Organization [facility] Address [address] [place] [address] Care Team Providers Name Role Phone Guerita Stewart MD Primary Care Provider Reason for Referral Radiology Services (Routine) Status Reason Specialty Diagnoses / Procedures Referred By Contact Referred To Contact Pending Radiology Diagnoses Intractable migraine without aura and without status migrainosus Joaquin Thompson, Radiology Procedures MRI BRAIN WO CONTRAST MD Perez [address] [place] [address] [place] [address] Reason for Visit Reason Comments Other New pt. Visit Encounter Details Date Type Department Care Team Description 03/26/2019 Office Visit [facility] Joaquin Thompson Other (New pt. Visit) Medicine Neurology MD Perez [id number], [address] [place] [address] [place], [place] [phone] [id number] [phone] Allergies Active Allergy Reactions Severity Noted Date Comments Oxycodone 05/13/2017 documented as of this encounter (statuses as of 03/29/2019) Medications Medication Sig Dispensed Refills Start Date End Date Status amlodipine (NORVASC) Take 5 mg by 0 Active 10 MG tablet mouth daily. aspirin EC (ASPIRIN Take 81 mg by 0 Active 81) 81 MG tablet mouth daily. lisinopril-hydrochlo Take 1 Tab by 0 Active rothiazide mouth two (PRINZIDE, times daily. ZESTORETIC) 20-12.5 MG per tablet chlorthalidone Take 25 mg by 0 09/10/2018 09/10/2019 Active (HYGROTEN) 25 MG mouth. tablet nortriptyline 1 capsule qPM 60 Cap 5 03/26/2019 Active (PAMELOR) 25 MG x 7 days, capsuleIndications: then 2 Intractable migraine capsule qPM without aura and without status migrainosus atorvastatin Take 40 mg by 0 03/26/2019 Discontinued (LIPITOR) 20 MG mouth daily. tablet documented as of this encounter (statuses as of 03/29/2019) Active Problems Problem Noted Date HTN (hypertension) 05/13/2017 SOB (shortness of breath) 05/13/2017 Tobacco abuse 05/13/2017 Chest pain 05/13/2017 Sleep apnea 05/13/2017 Right sided sciatica 05/13/2017 Sore throat 05/13/2017 Nasal inflammation due to allergen 05/13/2017 Hyperlipidemia 05/13/2017 documented as of this encounter (statuses as of 03/29/2019) Social History Tobacco Use Types Packs/Day Years Used Date Current Every Day Smoker Smokeless Tobacco: Never Used Alcohol Use Drinks/Week oz/Week Comments Yes Rarely or on occasion Sex Assigned at Date Recorded Not on file Job Start Date Occupation Industry Not on file Not on file Not on file Travel History Travel Start Travel End No recent travel history available. documented as of this encounter Last Filed Vital Signs Vital Sign Reading Time Taken Comments Blood Pressure 147/102 03/26/2019 3:22 pt. states that shes PM CDT taken her medication today Pulse 79 03/26/2019 3:22 PM CDT Temperature - - Respiratory Rate - - Oxygen Saturation - - Inhaled Oxygen - - Concentration Weight 84.8 kg (187 lb) 03/26/2019 3:22 PM CDT Height 165.1 cm (5' 5") 03/26/2019 3:22 PM CDT Body Mass Index 31.12 03/26/2019 3:22 PM CDT documented in this encounter Progress Notes Joaquin Thompson MD - 03/26/2019 4:00 PM CDT [facility] Neurology 03/26/2019 Patient: Ms. Stella Kaur Date of : 1970 CHIEF COMPLAINT: Headaches HISTORY OF PRESENT ILLNESS: Ms. Kaur is a 48 year-old woman who reports six weeks of headache. These are right-sided and occipital in distribution, pressure like and stabbing in quality and over four hours in duration. At leastone has lasted two days. The headaches are almost daily in frequency and are 8/10 in severity. They are associated with phonophobia but no autonomic symptoms such as eye redness, tearing or rhinorrhea.They are made worse by activity. Ms. Kaur has tried Tylenol, ibuprofen and naproxen with marginal benefit. PAST MEDICAL HISTORY: has a past medical history of Chest pain, Hyperlipidemia , Hypertension, Nasalinflammation due to allergen, Right sided sciatica, Sleep apnea, Sore throat, and Tobacco abuse. has a past surgical history that includes HX section and hx astrid and bso. MEDICATIONS: Outpatient Encounter Medications as of 03/26/2019 Medication Sig Dispense Refill amlodipine (NORVASC) 10 MG tablet Take 5 mg by mouth daily. aspirin EC (ASPIRIN 81) 81 MG tablet Take 81 mg by mouth daily. [DISCONTINUED] atorvastatin (LIPITOR) 20 MG tablet Take 40 mg by mouth daily. chlorthalidone (HYGROTEN) 25 MG tablet Take 25 mg by mouth. lisinopril-hydrochlorothiazide (PRINZIDE, ZESTORETIC) 20-12.5 MG per tablet Take 1 Tab by mouth two times daily. nortriptyline (PAMELOR) 25 MG capsule 1 capsule qPM x 7 days, then 2 capsule qPM 60 Cap 5 No facility-administered encounter medications on file as of 03/26/2019. ALLERGIES: Allergies Allergen Reactions Oxycodone FAMILY HISTORY: Family history is unknown by patient. SOCIAL HISTORY: reports that she has been smoking. She has never used smokeless tobacco. She reports that she drinks alcohol. She reports that she does not use drugs. REVIEW OF SYSTEMS: A 14-point review of systems was performed. All are unremarkable (negative) except as noted in the history of present illness section of this note. PHYSICAL EXAMINATION: Vital Signs: height is 5' 5" (1.651 m) and weight is 187 lb (84.8 kg). Her blood pressure is 147/102 (abnormal) and her pulse is 79. General: Awake, alert and in no acute distress. Eyes: Fundoscopic examination reveals sharp disc margins and normal retinal vasculature. Extremity: No peripheral edema. No cyanosis Neurological: Mental Status: Awake, alert, conversational and appropriate. Normal attention span and concentration. Normal fund of knowledge. Language: Intact to comprehension, naming and repetition. Speech: No dysarthria. Cranial Nerves: II: Visual hernandez are intact to confrontation. Fundoscopic examination is normal. III, IV, : Pupils are equal, round and reactive to light. Extra-ocular muscles are intact. No nystagmus. No ptosis. V: Facial sensation intact and symmetrical. VII: Facial motor function intact and symmetrical. VIII: Hearing is intact to finger rub bilaterally. IX: Palate elevates symmetrically. XI: Shoulder shrug strength 5/5. XII: Tongue is normal in strength and bulk. Motor: Normal tone. No atrophy. No abnormal movements or fasciculations. Strength Muscle/Action Right Left Deltoid 5 5 Biceps 5 5 Triceps 5 5 Wrist extension 5 5 Wrist flexion 5 5 Finger extension 5 5 Finger flexion 5 5 Interossei 5 5 Toe Extension 5 5 Hip flexion 5 5 Knee extension 5 5 Knee flexion 5 5 Ankle dorsiflexion 5 5 Ankle plantarflexion 5 5 Deep Tendon Reflexes: Right Left Biceps 2+ 2+ Brachioradialis 2+ 2+ Triceps 2+ 2+ Patellar 2+ 2+ Achilles 2+ 2+ Sensory: Intact throughout to light touch, temperature and vibration. Coordination: Rapid alternating movements are normal. Intact rbeydc-uv-jihl Gait: Normal Romberg: Negative (+) tenderness over the right occipital nerve IMPRESSION and PLAN: Frequent migraines. Ms. Kaur has almost daily migraines and will need a preventative. Most abortive medicines are off limits due to her history of stroke, so prevention is the best strategy. I prescribed nortriptyline titrated to 50 mg and asked her to report her response. Joaquin Thompson M.D. documented in this encounter Plan of Treatment Name Type Priority Associated Diagnoses Order Schedule MRI BRAIN WO CONTRAST Imaging Routine Intractable migraine 1 Occurrences starting without aura and without 03/26/2019 until status migrainosus 10/25/2019 Health Maintenance Due Date Last Done Comments MAMMOGRAM ANNUAL 1970 TETANUS SHOT (ADULT) 1985 BMI FOLLOW UP PLAN 1988 HIV SCREENING 1988 CERVICAL CANCER SCREENING 3 YEAR FOLLOW UP 1991 FLU VACCINE > 6 MONTHS 02/11/2019 documented as of this encounter Results Not on filedocumented in this encounter Visit Diagnoses Diagnosis Intractable migraine without aura and without status migrainosus - Primary Migraine without aura, with intractable migraine, so stated, without mention of status migrainosus documented in this encounter Insurance Payer Benefit Plan / Subscriber ID Effective Dates Phone Address Type Group [employer] OPEN ACCESS xxxxxxxxx 2016-Present [address] POS HMO/POS/EPO/PPO - [place], [place] [employer] [id number] documented as of this encounter
[2019-03-30] MEDS ORDERED: NA CHLORIDE 0.9% 1,000 ML ONE (14:45)
[2019-03-30] MEDS ORDERED: FOLIC ACID 5 MG/ML VIAL ONE (14:46)
--- NOTE | 2019-03-30 14:49 | RAD REPORT ---
EXAM DESCRIPTION: CT - Ct Stroke Brain Wo Cont - 03/30/2019 2:43 pm CLINICAL HISTORY: visual changes and DISLA TIA/CVA symptomology COMPARISON: Head Brain Wo Cont dated 12/19/2017; Ct Stroke Brain Wo Cont dated 12/19/2017 TECHNIQUE: All CT scans are performed using dose optimization technique as appropriate and may inclu de automated exposure control or mA/KV adjustment according to patient size. FINDINGS: No intracranial hemorrhage, hydrocephalus or extra-axial fluid collection.No areas of brai n edema or evidence of midline shift. The paranasal sinuses and mastoids are clear. The calvarium is intact. IMPRESSION: No acute intracranial abnormality. The findings were discussed with Dr. Moura on 03/30/19 at 2:20 pm by telephone.
[2019-03-30] MEDS ORDERED: LABETALOL HCL 100 MG/20 ML ONE (14:50)
--- NOTE | 2019-03-30 14:55 | EDPHYS ---
Physician Documentation [facility] Name: Stella Vargas Age: 48 yrs Sex: Female : 1970 Arrival Date: 03/30/2019 Time: 14:21 Bed 5 Private MD: ED Physician Uli Moura HPI: 03/30 14:43 This 48 yrs old Black Female presents to ER via EMS with complaints of S/S of Possible jennie Stroke. 14:43 The patient's problem is reported as paresthesias, in right upper extremity, in right jennie lower extremity, in right side of face, visual difficulty. Onset: The symptoms/episode began/occurred 1 hour(s) ago. Duration: The episode is continuous. Context: the episode(s) was witnessed, by co-worker(s). The symptoms are alleviated by nothing. The symptoms are aggravated by nothing. Associated signs and symptoms: The patient has no apparent associated signs or symptoms. Severity of symptoms: At their worst the symptoms were. Patient's baseline: Neuro: alert and fully oriented. The patient has not experienced similar symptoms in the past. REPOSSESSION AGENT: 16:02 LMP N/A - Post-menopause jl7 Historical: - Allergies: 14:22 Oxycodone; jl7 - Home Meds: 14:35 amlodipine oral [Active]; lisinopril Oral [Active]; la1 - PMHx: 14:22 Hypertension; CVA; jl7 - Immunization history:: Adult Immunizations unknown. - Social history:: Smoking status: Patient uses tobacco products, smokes one-half pack cigarettes per day. - Family history:: not pertinent. - Ebola Screening: : No symptoms or risks identified at this time. ROS: 14:43 Constitutional: Negative for fever, chills, and weight loss, Eyes: Negative for injury, jennie pain, redness, and discharge, ENT: Negative for injury, pain, and discharge, Neck: Negative for injury, pain, and swelling, Cardiovascular: Negative for chest pain, palpitations, and edema, Respiratory: Negative for shortness of breath, cough, wheezing, and pleuritic chest pain, Abdomen/GI: Negative for abdominal pain, nausea, vomiting, diarrhea, and constipation, Back: Negative for injury and pain, : Negative for injury, bleeding, discharge, and swelling, MS/Extremity: Negative for injury and deformity, Skin: Negative for injury, rash, and discoloration, Psych: Negative for depression, anxiety, suicide ideation, homicidal ideation, and hallucinations, Allergy/Immunology: Negative for hives, rash, and allergies, Endocrine: Negative for neck swelling, polydipsia, polyuria, polyphagia, and marked weight changes, Hematologic/Lymphatic: Negative for swollen nodes, abnormal bleeding, and unusual bruising. 14:43 Neuro: Positive for headache. Exam: 14:43 Constitutional: This is a well developed, well nourished patient who is awake, alert, jennie and in no acute distress. Head/Face: Normocephalic, atraumatic. ENT: Nares patent. No nasal discharge, no septal abnormalities noted. Tympanic membranes are normal and external auditory canals are clear. Oropharynx with no redness, swelling, or masses, exudates, or evidence of obstruction, uvula midline. Mucous membranes moist. Neck: Trachea midline, no thyromegaly or masses palpated, and no cervical lymphadenopathy. Supple, full range of motion without nuchal rigidity, or vertebral point tenderness. No Meningismus. Chest/axilla: Normal chest wall appearance and motion. Nontender with no deformity. No lesions are appreciated. Cardiovascular: Regular rate and rhythm with a normal S1 and S2. No gallops, murmurs, or rubs. Normal PMI, no JVD. No pulse deficits. Respiratory: Lungs have equal breath sounds bilaterally, clear to auscultation and percussion. No rales, rhonchi or wheezes noted. No increased work of breathing, no retractions or nasal flaring. Abdomen/GI: Soft, non-tender, with normal bowel sounds. No distension or tympany. No guarding or rebound. No evidence of tenderness throughout. Back: No spinal tenderness. No costovertebral tenderness. Full range of motion. Pelvic Exam: Normal external genitalia. Speculum exam with closed cervical os, no discharge or bleeding noted. Bimanual exam with normal adnexa, no adnexal or cervical motion tenderness. Normal uterus. Skin: Warm, dry with normal turgor. Normal color with no rashes, no lesions, and no evidence of cellulitis. MS/ Extremity: Pulses equal, no cyanosis. Neurovascular intact. Full, normal range of motion. Psych: Awake, alert, with orientation to person, place and time. Behavior, mood, and affect are within normal limits. 14:43 Eyes: Periorbital structures: appear normal, no acute changes, Pupils: no acute changes, equal, round, and reactive to light and accomodation, Extraocular movements: intact throughout, Conjunctiva: normal, no acute changes, Corneas: are normal, Visual hernandez: are intact. 14:45 Radiologist reports: neg jennie Vital Signs: 14:19 BP 158 / 115; Pulse 88; Resp 16; Pulse Ox 98% on R/A; Weight 83.91 kg; Height 5 ft. 5 la1 in. (165.10 cm); Pain 8/10; 15:06 BP 179 / 95; la1 15:07 BP 153 / 104; Pulse 77; Resp 16 S; Pulse Ox 98% on R/A; la1 15:43 BP 158 / 99; Pulse 73; Resp 14 S; Pulse Ox 100% on R/A; jl7 16:03 BP 163 / 97; Pulse 88; Resp 14 S; Temp 98(O); Pulse Ox 100% on R/A; jl7 16:30 BP 144 / 88; Pulse 73; Resp 16 S; Pulse Ox 100% on R/A; Pain 4/10; jl7 14:19 Body Mass Index 30.79 (83.91 kg, 165.10 cm) la1 NIH Stroke Scale Scores: 14:20 NIHSS Score: 3 jl7 14:45 NIHSS Score: 1 [facility] MDM: 14:31 Patient medically screened. [facility] 14:48 Data reviewed: vital signs, nurses notes, lab test result(s), EKG, radiologic studies, [facility] CT scan, MRI. 03/30 14:34 Order name: Basic Metabolic Panel; Complete Time: 15:38 03/30 14:34 Order name: CBC with Diff; Complete Time: 15:38 03/30 14:34 Order name: Protime (+inr); Complete Time: 15:38 03/30 14:34 Order name: Ptt, Activated; Complete Time: 15:38 03/30 14:34 Order name: CT Stroke Brain w/o Contrast; Complete Time: 15:38 03/30 14:34 Order name: Stroke CXR 1 View; Complete Time: 15:38 03/30 14:34 Order name: EKG; Complete Time: 14:35 03/30 14:34 Order name: Accucheck; Complete Time: 14:34 ny03/30 14:34 Order name: Cardiac monitoring; Complete Time: 14:34 03/30 14:34 Order name: EKG - Nurse/Tech; Complete Time: 14:38 03/30 14:34 Order name: IV Saline Lock; Complete Time: 14:34 03/30 14:34 Order name: Labs collected and sent; Complete Time: 14:38 ny03/30 14:34 Order name: NPO; Complete Time: 14:38 03/30 14:34 Order name: O2 Per Protocol; Complete Time: 14:34 ny03/30 14:34 Order name: O2 Sat Monitoring; Complete Time: 14:34 03/30 16:12 Order name: EKG; Complete Time: 16:13 [facility] 03/30 14:34 Order name: Stroke Swallow Screen; Complete Time: 14:38 ny03/30 16:12 Order name: EKG - Nurse/Tech; Complete Time: 16:25 [facility] Administered Medications: 14:46 Drug: foLIC Acid 1 mg Route: IVPB; Site: left antecubital; jl7 14:48 Follow up: IV Status: Completed infusion jl7 14:46 Drug: NS 0.9% 1000 ml Route: IV; Rate: 1 bolus; Site: left antecubital; jl7 16:26 Follow up: IV Status: Completed infusion; IV Intake: 1000ml jl7 15:05 Drug: Trandate 20 mg Route: IVP; Site: left antecubital; jl7 16:00 Follow up: Response: No adverse reaction; Blood pressure is unchanged jl7 15:15 Drug: ACTIvase {Co-Signature: iw (Georgia Tam RN).} Route: IV Thrombolytics; Rate: jl7 calculated rate; Infused Over: 60 mins; 16:26 Follow up: Response: No adverse reaction jl7 16:27 Follow up: Response: No change in condition jl7 15:59 Drug: Trandate 100 mg Route: PO; jl7 16:25 Follow up: Response: Blood pressure is lowered jl7 16:20 Drug: Zofran 4 mg Route: IVP; Site: left antecubital; la1 16:26 Follow up: Response: No adverse reaction jl7 16:21 Drug: Trandate 10 mg Route: IVP; Site: left antecubital; la1 16:25 Follow up: Response: No adverse reaction; Blood pressure is lowered jl7 16:21 Drug: morphine 2 mg Route: IVP; Site: left antecubital; la1 16:25 Follow up: Response: No adverse reaction; Pain is decreased jl7 16:30 Follow up: Response: No adverse reaction; Pain is decreased jl7 Point of Care Testing: Blood Glucose: 14:19 Blood Glucose: 76 mg/dL; la1 Ranges: Critical Glucose Levels:Adult <50 mg/dl or >400 mg/dl <40 mg/dl or >180 mg/dl Disposition: 03/30/19 14:54 Transfer ordered to [facility]. Diagnosis are Cerebral infarction, Essential (primary) hypertension. - Reason for transfer: Higher level of care. - Accepting physician is to neuro icu, [facility]. - Condition is Serious. - Problem is new. - Symptoms have improved. NIH Stroke Scale - NIH Stroke Score Date: 03/30/2019 Time: 14:20 Total Score = 3 1a. Level of Consciousness (LOC) - 1(Not Alert) 1b. Level of Consciousness (LOC) (Year \T\ Age) - 0(Both) 1c. LOC Commands (Open \T\ Closes Eyes/Documentation Coordinator) - 0(Both) 2. Best Gaze (Lateral Gaze Paresis) - 0(Normal) 3. Visual Field Loss - 1(Partial hemianopia) 4. Facial Palsy - 0(Normal) 5a. Left Arm: Motor (10-second hold) - 0(No drift) 5b. Right Arm: Motor (10-second hold) - 0(No drift) 6a. Left Leg: Motor (5-second hold - always test supine) - 0(No drift) 6b. Right Leg: Motor (5-second hold - always test supine) - 0(No drift) 7. Limb Ataxia (finger/nose \T\ heel/devries - test with eyes open) - 0(Absent) 8. Sensory Loss (pinprick arms/legs/face) - 1(Mild to moderate loss) 9. Best Language: Aphasia (description/naming/reading) - 0(No aphasia) 10. Dysarthria (speech clarity - read or repeat words) - 0(Normal) 11. Extinction and Inattention (visual/tactile/auditory/spatial/personal) - 0(No abnormality) Initials: rebeca NIH Stroke Scale - NIH Stroke Score Date: 03/30/2019 Time: 14:45 Total Score = 1 1a. Level of Consciousness (LOC) - 0(Alert) 1b. Level of Consciousness (LOC) (Year \T\ Age) - 0(Both) 1c. LOC Commands (Open \T\ Closes Eyes/Documentation Coordinator) - 0(Both) 2. Best Gaze (Lateral Gaze Paresis) - 0(Normal) 3. Visual Field Loss - 0(No visual loss) 4. Facial Palsy - 0(Normal) 5a. Left Arm: Motor (10-second hold) - 0(No drift) 5b. Right Arm: Motor (10-second hold) - 0(No drift) 6a. Left Leg: Motor (5-second hold - always test supine) - 0(No drift) 6b. Right Leg: Motor (5-second hold - always test supine) - 0(No drift) 7. Limb Ataxia (finger/nose \T\ heel/devries - test with eyes open) - 0(Absent) 8. Sensory Loss (pinprick arms/legs/face) - 1(Mild to moderate loss) 9. Best Language: Aphasia (description/naming/reading) - 0(No aphasia) 10. Dysarthria (speech clarity - read or repeat words) - 0(Normal) 11. Extinction and Inattention (visual/tactile/auditory/spatial/personal) - 0(No abnormality) Initials: jennie Signatures: Dispatcher [employer] EDKS Uli Moura MD MD cha Attema, Lee, RN RN la1 Mathieu Booker RN RN jl7 Georgia Tam RN iw Corrections: (The following items were deleted from the chart) 14:54 14:44 Head Angio+CT.RAD.BRZ ordered. EDMS EDMS 15:27 14:39 Brain Wo Cont+MRI.RAD.BRZ ordered. EDMS EDMS 15:27 14:57 MRA Head Wo Cont ordered. EDMS EDMS 16:19 15:07 Head Angio+CT.RAD.BRZ ordered. EDMS EDMS 16:39 14:54 03/30/2019 14:54 Transfer ordered to [facility]. jl7 Diagnosis is Cerebral infarction; Essential (primary) hypertension. Reason for transfer: Higher level of care. Accepting physician is to neuro icu, [facility]. Condition is Serious. Problem is new. Symptoms have improved. jennie
--- NOTE | 2019-03-30 14:55 | ER ---
Nurse's Notes [facility] Name: Stella Vargas Age: 48 yrs Sex: Female : 1970 Arrival Date: 03/30/2019 Time: 14:21 Bed 5 Private MD: Diagnosis: Cerebral infarction;Essential (primary) hypertension Presentation: 03/30 14:19 Presenting complaint: Patient states: I was at work at 1350 and got a bad DISLA to the la1 back right of my head and the vision got blurry in my right eye, on the way here the right side of my face started feeling funny. Transition of care: patient was not received from another setting of care. No acute neurological deficit is noted. The patients blood glucose was checked before arriving to the hospital and was found to be normal. Onset of symptoms was March 30, 2019 at 13:50. Risk Assessment: Do you want to hurt yourself or someone else? Patient reports no desire to harm self or others. Initial Sepsis Screen: Does the patient meet any 2 criteria? No. Patient's initial sepsis screen is negative. Does the patient have a suspected source of infection? No. Patient's initial sepsis screen is negative. Care prior to arrival: IV initiated. 20 GA, in the left antecubital area, Glucose check: 86. 14:19 Method Of Arrival: EMS: [facility] la1 14:19 Acuity: CAROLEE 2 la1 Triage Assessment: 14:15 The onset of the patients symptoms was March 30, 2019 at 13:50. General: Appears in jl7 no apparent distress. uncomfortable, Behavior is cooperative, crying, drowsy. Pain: Complains of pain in DISLA Pain currently is 6 out of 10 on a pain scale. EENT: No signs and/or symptoms were reported regarding the EENT system. Neuro: Level of Consciousness is awake, alert, obeys commands, Oriented to person, place, time, situation, Reports blurred vision in right eye headache. Cardiovascular: Heart tones present Patient's skin is warm and dry. Respiratory: Airway is patent Respiratory effort is even, unlabored, Respiratory pattern is regular, symmetrical, Breath sounds are clear bilaterally. GI: No signs and/or symptoms were reported involving the gastrointestinal system. Patient currently denies diarrhea, nausea, vomiting. : No signs and/or symptoms were reported regarding the genitourinary system. Derm: Skin is pink, warm \\T\\ dry. Musculoskeletal: No signs and/or symptoms reported regarding the musculoskeletal system. 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 N/A - Post-menopause jl7 Stroke Activation: Symptom onset < 3 hours Physician: Stroke Attending; Name: ; Notified At: 14:11; Arrived At: 14:19 Physician: Chief Stroke Resident; Name: ; Notified At: 14:11; Arrived At: Physician: Stroke Resident; Name: ; Notified At: 14:11; Arrived At: Physician: ED Attending; Name: ; Notified At: 14:11; Arrived At: Physician: ED Resident; Name: ; Notified At: 14:11; Arrived At: Historical: - Allergies: 14:22 Oxycodone; jl7 - Home Meds: 14:35 amlodipine oral [Active]; lisinopril Oral [Active]; la1 - PMHx: 14:22 Hypertension; CVA; jl7 - Immunization history:: Adult Immunizations unknown. - Social history:: Smoking status: Patient uses tobacco products, smokes one-half pack cigarettes per day. - Family history:: not pertinent. - Ebola Screening: : No symptoms or risks identified at this time. Screenin:20 Abuse screen: Denies threats or abuse. Denies injuries from another. Nutritional jl7 screening: No deficits noted. Tuberculosis screening: No symptoms or risk factors identified. Fall Risk Secondary diagnosis (15 points) CVA, IV access (20 points). Total Kim Fall Scale indicates Low Risk Score (25-44 pts). Fall prevention measures have been instituted. Side Rails Up X 2 Placed close to Nursing Station Frequent Obs/Assesments occuring As available Patient and Family Educated on Fall Prevention Program and strategies. Assessment: 14:20 VAN Scoring: Arm Drift: Patients demonstrates NO arm weakness. Patient is VAN Negative. jl7 The patient has not been NPO before screening. The patient is currently on the following diet: Regular The patient is alert, and able to follow commands. The patient does not exhibit slurred or garbled speech. The patient is not exhibiting difficulty speaking. The patient does not exhibit difficulty understanding words. The patient is able to swallow own secretions with no drooling or need for suction. Patient tolerated one teaspoon of water. No drooling, immediate coughing, gurgling, or clearing of the throat was noted. The patient tolerated 90mL of water. No drooling, immediate coughing, gurgling, or clearing of the throat was noted. The patient passed the bedside swallow screening. Oral medications may be given as ordered. Contact Physician for further diet orders. Provider notified of bedside swallow screening results: Uli Moura MD. 14:24 Reassessment: Dr. Saldaña reports CT is negative. iw 15:00 T-PA (Activase) Screening: Indications: Definite evidence of stroke, ischemic, embolic, iw or hypertensive: Yes. Treatment will start within 4.5 hours onset of symptoms: Yes. No evidence of intracranial hemorrhage or CT of head and no evidence of peripheral hemorrhage or recent CVA: Yes. 16:08 Reassessment: Pt c/o non-radiating, left sided chest pain began 10 min ago, described jl7 as "squeezing", rated 7/10. Dr. Moura notified, see MAR for orders. 16:31 Reassessment: Pain rated 4/10 at this time. Patient states feeling better. Patient jl7 states symptoms have improved. Vital Signs: 14:19 BP 158 / 115; Pulse 88; Resp 16; Pulse Ox 98% on R/A; Weight 83.91 kg; Height 5 ft. 5 la1 in. (165.10 cm); Pain 8/10; 15:06 BP 179 / 95; la1 15:07 BP 153 / 104; Pulse 77; Resp 16 S; Pulse Ox 98% on R/A; la1 15:43 BP 158 / 99; Pulse 73; Resp 14 S; Pulse Ox 100% on R/A; jl7 16:03 BP 163 / 97; Pulse 88; Resp 14 S; Temp 98(O); Pulse Ox 100% on R/A; jl7 16:30 BP 144 / 88; Pulse 73; Resp 16 S; Pulse Ox 100% on R/A; Pain 4/10; jl7 14:19 Body Mass Index 30.79 (83.91 kg, 165.10 cm) la1 NIH Stroke Scale Scores: 14:20 NIHSS Score: 3 jl7 14:45 NIHSS Score: 1 jennie ED Course: 14:20 Patient has correct armband on for positive identification. Placed in gown. Bed in low jl7 position. Call light in reach. Side rails up X2. dragline operator helper on. Pulse ox on. NIBP on. 14:20 Maintain EMS IV. Dressing intact. Good blood return noted. Site clean \\T\\ dry. Gauge \\T\\ jl 7 site: 20 left AC. 14:21 Patient arrived in ED. jl7 14:22 Mathieu Booker RN is Primary Nurse. jl7 14:31 Uli Moura MD is Attending Physician. jennie 14:32 Triage completed. la1 14:34 Arm band placed on left wrist. la1 14:39 EKG done, by technician automated equipment. reviewed by Uli Moura MD. sm3 14:47 CT Stroke Brain w/o Contrast In Process Unspecified. EDMS 15:03 Stroke CXR 1 View In Process Unspecified. EDMS 15:51 Radiology exam delayed due to pt currently on TPA; approx 30mins left. vm2 16:02 No provider procedures requiring assistance completed. Patient transferred, IV remains jl7 in place. intact, No redness/swelling at site. 16:15 EKG done, by ED staff, reviewed by Uli Moura MD. jl7 Administered Medications: 14:46 Drug: foLIC Acid 1 mg Route: IVPB; Site: left antecubital; jl7 14:48 Follow up: IV Status: Completed infusion jl7 14:46 Drug: NS 0.9% 1000 ml Route: IV; Rate: 1 bolus; Site: left antecubital; jl7 16:26 Follow up: IV Status: Completed infusion; IV Intake: 1000ml jl7 15:05 Drug: Trandate 20 mg Route: IVP; Site: left antecubital; jl7 16:00 Follow up: Response: No adverse reaction; Blood pressure is unchanged jl7 15:15 Drug: ACTIvase {Co-Signature: iw (Georgia Tam RN).} Route: IV Thrombolytics; Rate: jl7 calculated rate; Infused Over: 60 mins; 16:26 Follow up: Response: No adverse reaction jl7 16:27 Follow up: Response: No change in condition jl7 15:59 Drug: Trandate 100 mg Route: PO; jl7 16:25 Follow up: Response: Blood pressure is lowered jl7 16:20 Drug: Zofran 4 mg Route: IVP; Site: left antecubital; la1 16:26 Follow up: Response: No adverse reaction jl7 16:21 Drug: Trandate 10 mg Route: IVP; Site: left antecubital; la1 16:25 Follow up: Response: No adverse reaction; Blood pressure is lowered jl7 16:21 Drug: morphine 2 mg Route: IVP; Site: left antecubital; la1 16:25 Follow up: Response: No adverse reaction; Pain is decreased jl7 16:30 Follow up: Response: No adverse reaction; Pain is decreased jl7 Point of Care Testing: Blood Glucose: 14:19 Blood Glucose: 76 mg/dL; la1 Ranges: Intake: 16:26 IV: 1000ml; Total: 1000ml. jl7 Outcome: 14:54 ER care complete, transfer ordered by . jennie 16:39 Transferred by ground EMS to [facility], [facility], Transfer form completed. jl7 16:39 Condition: stable 16:39 Discharge instructions given to patient, family, Instructed on the need for transfer, Demonstrated understanding of instructions. 16:39 Patient left the ED. jl7 NIH Stroke Scale - NIH Stroke Score Date: 03/30/2019 Time: 14:20 Total Score = 3 1a. Level of Consciousness (LOC) - 1(Not Alert) 1b. Level of Consciousness (LOC) (Year \\T\\ Age) - 0(Both) 1c. LOC Commands (Open \\T\\ Closes Eyes/Feather Edger) - 0(Both) 2. Best Gaze (Lateral Gaze Paresis) - 0(Normal) 3. Visual Field Loss - 1(Partial hemianopia) 4. Facial Palsy - 0(Normal) 5a. Left Arm: Motor (10-second hold) - 0(No drift) 5b. Right Arm: Motor (10-second hold) - 0(No drift) 6a. Left Leg: Motor (5-second hold - always test supine) - 0(No drift) 6b. Right Leg: Motor (5-second hold - always test supine) - 0(No drift) 7. Limb Ataxia (finger/nose \\T\\ heel/devries - test with eyes open) - 0(Absent) 8. Sensory Loss (pinprick arms/legs/face) - 1(Mild to moderate loss) 9. Best Language: Aphasia (description/naming/reading) - 0(No aphasia) 10. Dysarthria (speech clarity - read or repeat words) - 0(Normal) 11. Extinction and Inattention (visual/tactile/auditory/spatial/personal) - 0(No abnormality) Initials: rebeca NIH Stroke Scale - NIH Stroke Score Date: 03/30/2019 Time: 14:45 Total Score = 1 1a. Level of Consciousness (LOC) - 0(Alert) 1b. Level of Consciousness (LOC) (Year \\T\\ Age) - 0(Both) 1c. LOC Commands (Open \\T\\ Closes Eyes/Feather Edger) - 0(Both) 2. Best Gaze (Lateral Gaze Paresis) - 0(Normal) 3. Visual Field Loss - 0(No visual loss) 4. Facial Palsy - 0(Normal) 5a. Left Arm: Motor (10-second hold) - 0(No drift) 5b. Right Arm: Motor (10-second hold) - 0(No drift) 6a. Left Leg: Motor (5-second hold - always test supine) - 0(No drift) 6b. Right Leg: Motor (5-second hold - always test supine) - 0(No drift) 7. Limb Ataxia (finger/nose \\T\\ heel/devries - test with eyes open) - 0(Absent) 8. Sensory Loss (pinprick arms/legs/face) - 1(Mild to moderate loss) 9. Best Language: Aphasia (description/naming/reading) - 0(No aphasia) 10. Dysarthria (speech clarity - read or repeat words) - 0(Normal) 11. Extinction and Inattention (visual/tactile/auditory/spatial/personal) - 0(No abnormality) Initials: jennie Signatures: Dispatcher [employer] EDMS Uli Moura MD MD cha Williams, Irene RN Guy Rdz RN RN la1 Leal, Jahala, RN RN jl7 Daksha Stanley Shakira sm3 Irene Williams RN iw Corrections: (The following items were deleted from the chart) 15:08 15:07 BP 153 / 104; la1 la1 16:06 14:38 NIHSS Score: 1 Stew jl7
[2019-03-30 14:59] LABS: Absolute Lymphocytes (CBC) 3.4 K/uL (0.7-4.9); BUN Blood Urea Nitrogen 10 mg/dL (7-18); Basophils % 0.7 % (0-1.3); Bicarbonate 28 mmol/L (21-32); Glucose Level 79 mg/dL (74-106); Hematocrit 36.7 % (36.0-45.0); Lymphocytes % 47.7 % (15.3-44.8); MPV 8.7 fL (7.6-11.3); Potassium 3.8 mmol/L (3.5-5.1); RBC Red Blood Cell Count 4.34 M/uL (3.86-4.86); Sodium Level 141 mmol/L (136-145)
[2019-03-30 15:01] LABS: Protime INR 1.04
[2019-03-30] MEDS ORDERED: ALTEPLASE 100 ML IV ONE (15:01)
--- NOTE | 2019-03-30 15:06 | RAD REPORT ---
EXAM DESCRIPTION: Loki Single View03/30/2019 2:59 pm CLINICAL HISTORY: Hypertension COMPARISON: 2018 FINDINGS: Lung base is hazy. Upper lobes clear. . The heart is mildly enlarged IMPRESSION: Lung bases are hazy. PA and lateral chest series is recommended for further evaluation
[2019-03-30] MEDS ORDERED: LABETALOL HCL 100 MG TAB ONE (15:55)
[2019-03-30] MEDS ORDERED: MORPHINE 4 MG/ML SYR ONE (16:15)
[2019-03-30] MEDS ORDERED: ONDANSETRON 4 MG/2 ML VIAL ONE (16:15)
[2019-03-30 16:49] VITALS: O2SAT 100
[2019-03-30 16:50] VITALS: TEMP 98
[2019-03-30 16:52] VITALS: BP 144/88
--- NOTE | 2019-03-31 07:26 | EKG ---
Test Date: 2019-03-30 Test Time: 16:14:41 Polysomnography Technician: ZULEYMA MEASUREMENT RESULTS: Intervals: Rate: 77 DE: 178 QRSD: 84 QT: 402 QTc: 454 [place]: P: 67 DE: 178 QRS: 20 T: 60 INTERPRETIVE STATEMENTS: Normal sinus rhythm Possible Left atrial enlargement Borderline ECG Compared to ECG 03/30/2019 14:35:24 No significant changes Electronically Signed On 03-31-19 07:25:13 CDT by Lonny Bettencourt
--- NOTE | 2019-03-31 07:27 | EKG ---
Test Date: 2019-03-30 Test Time: 14:35:24 International Sourcing Manager: JOHNNY MEASUREMENT RESULTS: Intervals: Rate: 83 NM: 164 QRSD: 82 QT: 378 QTc: 444 [place]: P: 57 NM: 164 QRS: 10 T: 53 INTERPRETIVE STATEMENTS: Poor data quality, interpretation may be adversely affected Normal sinus rhythm Possible Left atrial enlargement Borderline ECG Compared to ECG 12/19/2017 13:55:25 No significant changes Electronically Signed On 03-31-19 07:25:18 CDT by Lonny Bettencourt
== END 2019-03-30 16:39 | disposition short-term general hospital (02) ==
LOC: ER 14:19
DX: I63.9 Cerebral infarction, unspecified (principal); I10 Essential (primary) hypertension; R29.703 NIHSS score 3; F17.210 Nicotine dependence, cigarettes, uncomplicated; Z88.5 Allergy status to narcotic agent
CPT/HCPCS: 96361; 92977; 93005 ×2; 85025; 80048; 36415; 85610; 85730; 70450; 71045; 96375; 96374 ×2; 99285; J2997; J7030; J2405